=== PATIENT | male | born 1950 | race Caucasian/White ===

== ENCOUNTER → 2016-12-28 | Outpatient (CLI) | payer OTHER ==
[2016-12-28 09:46] LABS: Urine Bilirubin Negative (Negative); Urine Blood Negative /uL (Negative); Urine Color Yellow (Yellow); Urine Glucose Normal (Normal); Urine Ketone Negative (Negative); Urine Mucus FEW (None Seen); Urine Nitrite Negative (Negative); Urine RBC <1 /hpf (0 - 3); Urine Urobilinogen Normal (Negative)
[2016-12-28 09:53] LABS: Basophils # (auto) 0 uL; Basophils % (auto) 0.6 % (0.0-2.0); CONDITION Y; Eosinophils # (auto) 0.1 uL; Eosinophils % (auto) 1.3 % (0.0-7.0); Hematocrit 47.7 % (41.0-53.0); Hemoglobin 16.3 g/dL (13.5-17.5); Lymphocytes # (auto) 1.7 uL; Lymphocytes % (auto) 23.8 % (10.0-50.0); Mean Corpuscular Hemoglobin 30.4 pg (28.0-32.0); Mean Corpuscular Hgb Conc. 34.2 g/dL (32.0-36.0); Mean Corpuscular Volume 88.9 fL (80.0-100.0); Mean Platelet Volume 9.9 fL (7.4-10.4); Monocytes # (auto) 0.6 uL; Monocytes % (auto) 7.8 % (0.0-12.0); Neutrophils # (auto) 4.8 uL; Neutrophils % (auto) 66.5 % (37.0-80.0); Platelet Count (auto) 264 10^3/uL (140-450); Red Cell Distribution Width 15.2 % (11.6-16.0); White Blood Cell 7.2 10^3/uL (4.4-10.8)
[2016-12-28 10:13] LABS: Albumin 3.8 g/dL (3.4-5.0); BUN/Creatinine Ratio 19.1; Bilirubin, Total 0.5 mg/dL (0.2-1.0); Calcium 9.2 mg/dL (8.5-10.1); Potassium 3.9 mmol/L (3.5-5.1); Total Protein 7.3 g/dL (6.4-8.2)
== END | disposition home or self-care (01) ==
LOC: LAB 08:25
PROVIDERS: ATTEND Family Medicine
DX: E78.5 Hyperlipidemia, unspecified (principal); E29.1 Testicular hypofunction
CPT/HCPCS: 36415; 80053; 80061; 81001; 84403; 85025

== ENCOUNTER 2017-04-04 12:52 | Inpatient (IN) | payer OTHER ==
[~2017-04-04] VITALS: Ht 170.2 cm; Wt 93.9 kg
[2017-04-04 14:01] LABS: Basophils # (auto) 0.1 uL; Basophils % (auto) 0.6 % (0.0-2.0); Eosinophils # (auto) 0.2 uL; Eosinophils % (auto) 1.7 % (0.0-7.0); Hematocrit 41.5 % (41.0-53.0); Lymphocytes # (auto) 1.9 uL; Lymphocytes % (auto) 21.1 % (10.0-50.0); Mean Corpuscular Hgb Conc. 33.9 g/dL (32.0-36.0); Mean Corpuscular Volume 91.7 fL (80.0-100.0); Mean Platelet Volume 8.8 fL (6.9-10.8); Monocytes # (auto) 0.8 uL; Neutrophils # (auto) 6.1 uL; Neutrophils % (auto) 67.6 % (37.0-80.0); Platelet Count (auto) 231 10^3/uL (140-450); Red Cell Distribution Width 15.5 % (11.8-14.3)
[2017-04-04 14:17] LABS: Albumin 3.6 g/dL (3.4-5.0); Alkaline Phosphatase 77 U/L (45-117); Anion Gap 7 (5-15); Aspartate Aminotransferase 14 U/L (15-37); BUN/Creatinine Ratio 26.1; Bilirubin, Total 0.5 mg/dL (0.2-1.0); Blood Urea Nitrogen 18 mg/dL (7-18); Calcium 8.4 mg/dL (8.5-10.1); Carbon Dioxide 28 mmol/L (21-32); Chloride 102 mmol/L (98-107); GFR African American 147 mL/min; GFR Non-African American 122 mL/min; Glucose 88 mg/dL (74-106); Magnesium 2.1 mg/dL (1.6-2.6); Potassium 3.7 mmol/L (3.5-5.1); Sodium 137 mmol/L (136-145); Total Protein 7.1 g/dL (6.4-8.2)
[2017-04-04 22:00] VITALS: BP 117/76
[2017-04-04 23:30] VITALS: BP 117/76
[2017-04-05 05:00] VITALS: BP 147/77
[2017-04-05] MEDS ORDERED: NIFE60TA59 PO (05:55)
[2017-04-05] MEDS ORDERED: ASPI1TAB37 PO (05:55)
[2017-04-05] MEDS ORDERED: DOXA1TAB42 PO (06:01)
[2017-04-05] MEDS ORDERED: METO-169 PO (06:01)
[2017-04-05 06:57] LABS: Cholesterol 198 mg/dL (< 200); HDL Cholesterol 35 mg/dL (40-59); LDL Cholesterol 140 mg/dL (< 100); Triglycerides 118 mg/dL (< 150)
[2017-04-05] MEDS ORDERED: VALS160T43 PO (07:53)
[2017-04-05 08:50] LABS: Urine Bilirubin Negative (Negative); Urine Blood Negative /uL (Negative); Urine Color Yellow (Yellow); Urine Glucose Normal (Normal); Urine Ketone TRACE (Negative); Urine Mucus FEW (None Seen); Urine Nitrite Negative (Negative); Urine RBC <1 /hpf (0 - 3); Urine Squamous Epithelial Cell FEW /hpf (<5); Urine pH 6.5 (5.0-8.0)
[2017-04-05 09:14] VITALS: BP 157/84
[2017-04-05] MEDS ORDERED: LORazepam 2MG/ML-1ML VIAL IV ONE (13:15)
[2017-04-05 14:33] VITALS: BP 142/88
[2017-04-05] MEDS ORDERED: VALSARTAN 80 MG TAB PO ONE (16:00)
[2017-04-05] MEDS ORDERED: ASPirin-EC 81 mg tab PO ONE (16:00)
[2017-04-05] MEDS ORDERED: MECLIZINE HCL 25 MG TAB PO PRN (16:00)
[2017-04-05] MEDS ORDERED: METO-498 PO (16:08)
[2017-04-05] MEDS ORDERED: ALLO100T PO (16:11)
[2017-04-05] MEDS ORDERED: OMEG1CAP31 PO (16:14)
[2017-04-05] MEDS ORDERED: INDO50CA82 PO (16:17)
[2017-04-05] MEDS ORDERED: LORazepam 2MG/ML-1ML VIAL IV PRN ×2 (17:00→20:15)
[2017-04-05 17:34] VITALS: BP_SYST 141; BP_SYST 179; BP_DIAS 83; BP_DIAS 89
[2017-04-05 17:45] VITALS: BP 148/82
[2017-04-05 22:00] VITALS: BP_SYST 108; BP_SYST 146; BP_DIAS 65; BP_DIAS 84
[2017-04-05] MEDS ORDERED: ATORVASTATIN 20 MG TAB PO SCH (22:00)
[2017-04-06 05:51] VITALS: BP 147/83
[2017-04-06 07:08] LABS: BUN/Creatinine Ratio 19.7; Calcium 8.9 mg/dL (8.5-10.1); Potassium 4.4 mmol/L (3.5-5.1)
[2017-04-06 09:10] VITALS: BP 149/81
[2017-04-06] MEDS ORDERED: VALSARTAN 80 MG TAB PO SCH (10:00)
[2017-04-06] MEDS ORDERED: ASPirin-EC 81 mg tab PO SCH (10:00)
[2017-04-06] MEDS ORDERED: FAMOTIDINE 20 MG TAB PO SCH (10:00)
[2017-04-06 13:00] VITALS: BP 151/71
[2017-04-06] MEDS ORDERED: MECL12.554 PO (13:51)
[2017-04-06] MEDS ORDERED: NIFEdipine ER 30 MG TAB PO ONE (14:00)
[2017-04-06 15:02] VITALS: BP 149/81
== END 2017-04-06 16:00 | disposition home or self-care (01) | DRG 125 ==
LOC: ER 13:02 → TELE 13:03 → TELE-WESTW 21:20
PROVIDERS: ADMIT Nurse Practitioner Acute Care; ATTEND Internal Medicine
DX: H53.8 Other visual disturbances (principal); E78.5 Hyperlipidemia, unspecified; I10 Essential (primary) hypertension; N40.0 Benign prostatic hyperplasia without lower urinary tract symptoms; F17.200 Nicotine dependence, unspecified, uncomplicated; R00.1 Bradycardia, unspecified; R55 Syncope and collapse; Z82.3 Family history of stroke; Z80.8 Family history of malignant neoplasm of other organs or systems; H81.90 Unspecified disorder of vestibular function, unspecified ear
CPT/HCPCS: 36415; 43239; 70450; 70551; 71020; 80048; 80053; 80061; 81001; 82962; 83735; 84484; 85025; 87086; 93005; 93306; 93886; 94761

== ENCOUNTER → 2017-04-23 | Outpatient (CLI) | payer OTHER ==
[~2017-04-23] MED LIST: ALLO100T PO; ASPI1TAB37 PO; DOXA1TAB42 PO; INDO50CA82 PO; MECL12.554 PO; METO-498 PO; NIFE60TA59 PO; OMEG1CAP31 PO; VALS160T43 PO
== END | disposition home or self-care (01) ==
LOC: LAB 13:51
PROVIDERS: ATTEND Family Medicine
DX: Z12.11 Encounter for screening for malignant neoplasm of colon (principal); I10 Essential (primary) hypertension
CPT/HCPCS: 82270

== ENCOUNTER → 2017-08-26 | Outpatient (CLI) | payer OTHER ==
[~2017-08-26] MED LIST changes: -METO-498 PO; +METO200T42 PO
[2017-08-26 09:39] LABS: Basophils # (auto) 0.1 uL; Basophils % (auto) 0.8 % (0.0-2.0); Eosinophils # (auto) 0.1 uL; Hematocrit 43.7 % (41.0-53.0); Hemoglobin 14.5 g/dL (13.5-17.5); Lymphocytes # (auto) 1.6 uL; Lymphocytes % (auto) 22.2 % (10.0-50.0); Mean Corpuscular Hemoglobin 30.3 pg (28.0-32.0); Mean Corpuscular Hgb Conc. 33.2 g/dL (32.0-36.0); Mean Corpuscular Volume 91.4 fL (80.0-100.0); Monocytes # (auto) 0.7 uL; Neutrophils # (auto) 4.8 uL; Platelet Count (auto) 243 10^3/uL (140-450); Red Blood Cells 4.78 10^6/uL (4.5-5.90); White Blood Cell 7.3 10^3/uL (4.4-10.8)
[2017-08-26 09:57] LABS: Urine Bacteria NONE SEEN /hpf (None Seen); Urine Blood Negative /uL (Negative); Urine Mucus FEW (None Seen); Urine Specific Gravity 1.026 (1.001-1.035); Urine WBC 1 /hpf (0 - 3)
[2017-08-26 10:39] LABS: Albumin 3.7 g/dL (3.4-5.0); BUN/Creatinine Ratio 23.4; Bilirubin, Total 0.5 mg/dL (0.2-1.0); Calcium 9.4 mg/dL (8.5-10.1); Potassium 3.8 mmol/L (3.5-5.1); Total Protein 7.5 g/dL (6.4-8.2)
[2017-08-26 19:45] LABS: Prostate Specific Antigen 1.78 ng/mL (0.0-4.0)
[2017-08-26 19:46] LABS: Folate (Folic Acid) 13.32 ng/mL (5.38-24)
== END | disposition home or self-care (01) ==
LOC: LAB 08:09
PROVIDERS: ATTEND Nurse Practitioner
DX: E78.5 Hyperlipidemia, unspecified (principal); R79.89 Other specified abnormal findings of blood chemistry
CPT/HCPCS: 36415; 80053; 80061; 81001; 82607; 82746; 83036; 84153; 84403; 84443; 85025

== ENCOUNTER → 2018-03-09 | Outpatient (CLI) | payer OTHER ==
[2018-03-09 10:15] LABS: Basophils # (auto) 0 uL; Basophils % (auto) 0.5 % (0.0-2.0); Eosinophils # (auto) 0.1 uL; Eosinophils % (auto) 1.8 % (0.0-7.0); Hematocrit 42.4 % (41.0-53.0); Hemoglobin 14.2 g/dL (13.5-17.5); Lymphocytes # (auto) 1.5 uL; Lymphocytes % (auto) 19.8 % (10.0-50.0); Mean Corpuscular Hemoglobin 30.7 pg (28.0-32.0); Mean Corpuscular Hgb Conc. 33.5 g/dL (32.0-36.0); Mean Corpuscular Volume 91.5 fL (80.0-100.0); Monocytes # (auto) 0.7 uL; Monocytes % (auto) 9.1 % (0.0-12.0); Neutrophils # (auto) 5.2 uL; Neutrophils % (auto) 68.8 % (37.0-80.0); Nucleated Red Blood Cells % 0.1 %; Platelet Count (auto) 224 10^3/uL (140-450); Red Blood Cells 4.64 10^6/uL (4.5-5.90); White Blood Cell 7.6 10^3/uL (4.4-10.8)
[2018-03-09 10:26] LABS: Urine Bacteria NONE SEEN /hpf (None Seen); Urine Blood Negative /uL (Negative); Urine Mucus FEW (None Seen); Urine WBC 1 /hpf (0 - 3)
[2018-03-09 11:30] LABS: Albumin 3.8 g/dL (3.4-5.0); BUN/Creatinine Ratio 19.4; Bilirubin, Total 0.5 mg/dL (0.2-1.0); Calcium 9.2 mg/dL (8.5-10.1); Total Protein 7.5 g/dL (6.4-8.2)
== END | disposition home or self-care (01) ==
LOC: LAB 09:00
PROVIDERS: ATTEND Nurse Practitioner
DX: E78.1 Pure hyperglyceridemia (principal); I10 Essential (primary) hypertension
CPT/HCPCS: 36415; 80053; 80061; 81001; 83036; 85025

== ENCOUNTER → 2018-07-18 | Outpatient (CLI) | payer OTHER ==
[2018-07-18 09:37] LABS: Basophils # (auto) 0 uL; Basophils % (auto) 0.5 % (0.0-2.0); Eosinophils # (auto) 0.2 uL; Hematocrit 45.2 % (41.0-53.0); Hemoglobin 15.1 g/dL (13.5-17.5); Lymphocytes # (auto) 1.8 uL; Lymphocytes % (auto) 22.3 % (10.0-50.0); Mean Corpuscular Hemoglobin 30.3 pg (28.0-32.0); Mean Corpuscular Hgb Conc. 33.5 g/dL (32.0-36.0); Mean Corpuscular Volume 90.7 fL (80.0-100.0); Monocytes # (auto) 0.8 uL; Monocytes % (auto) 9.6 % (0.0-12.0); Neutrophils # (auto) 5.4 uL; Neutrophils % (auto) 65.6 % (37.0-80.0); Platelet Count (auto) 253 10^3/uL (140-450); Red Blood Cells 4.99 10^6/uL (4.5-5.90); Red Cell Distribution Width 15.1 % (11.8-14.3); White Blood Cell 8.2 10^3/uL (4.4-10.8)
[2018-07-18 09:48] LABS: Urine Bacteria NONE SEEN /hpf (None Seen); Urine Blood Negative /uL (Negative); Urine Specific Gravity 1.018 (1.001-1.035); Urine WBC 1 /hpf (0 - 3)
[2018-07-18 10:59] LABS: Anion Gap 6 (5-15); Blood Urea Nitrogen 23 mg/dL (7-18); Carbon Dioxide 29 mmol/L (21-32); Chloride 105 mmol/L (98-107); Glucose 114 mg/dL (74-106); Potassium 3.9 mmol/L (3.5-5.1); Sodium 140 mmol/L (136-145)
[2018-07-18 11:04] LABS: Alanine Aminotransferase 35 U/L (16-61); Alkaline Phosphatase 89 U/L (45-117); Aspartate Aminotransferase 19 U/L (15-37); BUN/Creatinine Ratio 23.7; Bilirubin, Total 0.4 mg/dL (0.2-1.0); Cholesterol 242 mg/dL (< 200); GFR African American > 60 mL/min; GFR Non-African American > 60 mL/min; HDL Cholesterol 35 mg/dL (40-59); LDL Cholesterol 185 mg/dL (< 100); Total Protein 7.7 g/dL (6.4-8.2); Triglycerides 151 mg/dL (< 150)
== END | disposition home or self-care (01) ==
LOC: LAB 08:40
PROVIDERS: ATTEND Nurse Practitioner
DX: E78.5 Hyperlipidemia, unspecified (principal)
CPT/HCPCS: 36415; 80053; 80061; 81001; 84443; 85025

== ENCOUNTER → 2018-09-16 | Day surgery (SDC) | payer OTHER ==
[2018-09-13 10:41] LABS: Basophils # (auto) 0.1 uL; Basophils % (auto) 0.8 % (0.0-2.0); Eosinophils # (auto) 0.2 uL; Eosinophils % (auto) 2.6 % (0.0-7.0); Hematocrit 42.9 % (41.0-53.0); Hemoglobin 14.4 g/dL (13.5-17.5); Lymphocytes # (auto) 1.4 uL; Lymphocytes % (auto) 19.5 % (10.0-50.0); Mean Corpuscular Hgb Conc. 33.5 g/dL (32.0-36.0); Mean Corpuscular Volume 89.6 fL (80.0-100.0); Monocytes # (auto) 0.7 uL; Monocytes % (auto) 9.6 % (0.0-12.0); Neutrophils # (auto) 4.9 uL; Neutrophils % (auto) 67.5 % (37.0-80.0); Nucleated Red Blood Cells % 0.1 %; Platelet Count (auto) 251 10^3/uL (140-450); Red Blood Cells 4.79 10^6/uL (4.5-5.90); Red Cell Distribution Width 14.7 % (11.8-14.3); White Blood Cell 7.3 10^3/uL (4.4-10.8)
[2018-09-13 10:54] LABS: INR 1.02 (0.9-1.15); Prothrombin Time 10.9 sec (9.27-12.13)
[~2018-09-16] VITALS: Ht 175.3 cm; Wt 93.0 kg
[~2018-09-16] MED LIST changes: -ALLO100T PO; -INDO50CA82 PO; -MECL12.554 PO; +METO-159 PO; -METO200T42 PO; +MIDAZOLAM HCL 5 MG/ML-1ML VIAL ONE; -OMEG1CAP31 PO; +SODIUM CHLORIDE LOCK 10 ML ONE; +diphenhdrAMINE HCL 50 MG/1 ML VL ONE; +fentaNYL CITRATE 100 MCG/2 ML VL ONE
[2018-09-16 11:45] VITALS: BP 153/71
== END | disposition home or self-care (01) ==
LOC: GI 09:00
PROVIDERS: ATTEND Internal Medicine Gastroenterology
DX: Z12.11 Encounter for screening for malignant neoplasm of colon (principal); K57.30 Diverticulosis of large intestine without perforation or abscess without bleeding; K64.8 Other hemorrhoids; Z79.82 Long term (current) use of aspirin; Z79.899 Other long term (current) drug therapy; Z98.890 Other specified postprocedural states
CPT/HCPCS: 36415; 45378; 85025; 85610; 85730; J1200; J2250; J3010; J7030; 99152

== ENCOUNTER → 2018-09-19 | Outpatient (CLI) | payer OTHER ==
[~2018-09-19] MED LIST changes: -MIDAZOLAM HCL 5 MG/ML-1ML VIAL ONE; -SODIUM CHLORIDE LOCK 10 ML ONE; -diphenhdrAMINE HCL 50 MG/1 ML VL ONE; -fentaNYL CITRATE 100 MCG/2 ML VL ONE
[2018-09-19 09:38] LABS: Basophils # (auto) 0 uL; Basophils % (auto) 0.6 % (0.0-2.0); Eosinophils # (auto) 0.2 uL; Hematocrit 44.5 % (41.0-53.0); Hemoglobin 14.7 g/dL (13.5-17.5); Lymphocytes # (auto) 1.7 uL; Lymphocytes % (auto) 19.4 % (10.0-50.0); Mean Corpuscular Hemoglobin 29.7 pg (28.0-32.0); Mean Corpuscular Hgb Conc. 33.1 g/dL (32.0-36.0); Mean Corpuscular Volume 89.7 fL (80.0-100.0); Monocytes # (auto) 0.8 uL; Monocytes % (auto) 9.3 % (0.0-12.0); Neutrophils # (auto) 5.9 uL; Neutrophils % (auto) 68.7 % (37.0-80.0); Nucleated Red Blood Cells % 0.1 %; Platelet Count (auto) 273 10^3/uL (140-450); Red Blood Cells 4.97 10^6/uL (4.5-5.90); Red Cell Distribution Width 14.6 % (11.8-14.3); White Blood Cell 8.5 10^3/uL (4.4-10.8)
[2018-09-19 09:45] LABS: Urine Bacteria NONE SEEN /hpf (None Seen); Urine Blood Negative /uL (Negative); Urine Specific Gravity 1.021 (1.001-1.035); Urine WBC 1 /hpf (0 - 3)
[2018-09-19 10:24] LABS: Potassium 4.2 mmol/L (3.5-5.1)
[2018-09-19 10:35] LABS: Albumin 3.9 g/dL (3.4-5.0); BUN/Creatinine Ratio 19.1; Bilirubin, Total 0.4 mg/dL (0.2-1.0); Calcium 9.1 mg/dL (8.5-10.1); Total Protein 7.5 g/dL (6.4-8.2)
== END | disposition home or self-care (01) ==
LOC: LAB 09:15
PROVIDERS: ATTEND Nurse Practitioner
DX: E78.5 Hyperlipidemia, unspecified (principal)
CPT/HCPCS: 36415; 80053; 80061; 81001; 85025

== ENCOUNTER → 2018-12-13 | Outpatient (CLI) | payer OTHER | END | disposition home or self-care (01) | LOC: LAB 09:28 | PROVIDERS: ATTEND Nurse Practitioner | DX: E78.5 Hyperlipidemia, unspecified (principal) | CPT/HCPCS: 36415; 83036 ==

== ENCOUNTER → 2019-03-24 | Outpatient (CLI) | payer OTHER ==
[2019-03-24 10:11] LABS: Basophils # (auto) 0.1 uL; Basophils % (auto) 1.3 % (0.0-2.0); Eosinophils # (auto) 0.1 uL; Hematocrit 43.8 % (41.0-53.0); Hemoglobin 15.2 g/dL (13.5-17.5); Lymphocytes # (auto) 1.6 uL; Lymphocytes % (auto) 14.9 % (10.0-50.0); Mean Corpuscular Hemoglobin 30.3 pg (28.0-32.0); Mean Corpuscular Hgb Conc. 34.8 g/dL (32.0-36.0); Mean Corpuscular Volume 87.1 fL (80.0-100.0); Monocytes # (auto) 0.8 uL; Neutrophils # (auto) 7.8 uL; Neutrophils % (auto) 74.8 % (37.0-80.0); Nucleated Red Blood Cells % 1.5 %; Platelet Count (auto) 276 10^3/uL (140-450); Red Blood Cells 5.03 10^6/uL (4.5-5.90); Red Cell Distribution Width 14.5 % (11.8-14.3); White Blood Cell 10.5 10^3/uL (4.4-10.8)
[2019-03-24 10:42] LABS: CRP High Sensitivity 0.76 mg/dL (< 0.3); Calcium 9.1 mg/dL (8.5-10.1); Potassium 3.7 mmol/L (3.5-5.1)
[2019-03-24 10:44] LABS: BUN/Creatinine Ratio 18.9; Bilirubin, Total 0.4 mg/dL (0.2-1.0); Total Protein 7.8 g/dL (6.4-8.2)
[2019-03-24 10:46] LABS: Urine Bacteria NONE SEEN /hpf (None Seen); Urine Blood Negative /uL (Negative); Urine Hyaline Cast FEW /lpf (0 - 2); Urine Mucus FEW (None Seen); Urine Specific Gravity 1.019 (1.001-1.035); Urine WBC 2 /hpf (0 - 3)
== END | disposition home or self-care (01) ==
LOC: LAB 09:53
PROVIDERS: ATTEND Nurse Practitioner
DX: J06.9 Acute upper respiratory infection, unspecified (principal)
CPT/HCPCS: 36415; 80053; 81001; 85025; 85652; 86141

== ENCOUNTER → 2019-04-12 | Outpatient (CLI) | payer OTHER ==
[2019-04-12 11:14] LABS: Calcium 9.2 mg/dL (8.5-10.1)
== END | disposition home or self-care (01) ==
LOC: LAB 08:59
PROVIDERS: ATTEND Nurse Practitioner
DX: Z01.818 Encounter for other preprocedural examination (principal); I10 Essential (primary) hypertension
CPT/HCPCS: 36415; 80048

== ENCOUNTER → 2019-08-11 | Outpatient (CLI) | payer OTHER ==
[~2019-08-11] MED LIST changes: +NIFE1TAB30 PO; -NIFE60TA59 PO
[2019-08-11 11:32] LABS: Basophils # (auto) 0.1 uL; Basophils % (auto) 0.7 % (0.0-2.0); Eosinophils # (auto) 0.2 uL; Eosinophils % (auto) 2.1 % (0.0-7.0); Hematocrit 44.1 % (41.0-53.0); Hemoglobin 14.5 g/dL (13.5-17.5); Lymphocytes % (auto) 20.4 % (10.0-50.0); Mean Corpuscular Hemoglobin 29.6 pg (28.0-32.0); Mean Corpuscular Volume 89.8 fL (80.0-100.0); Monocytes # (auto) 0.9 uL; Monocytes % (auto) 9.1 % (0.0-12.0); Neutrophils # (auto) 6.5 uL; Neutrophils % (auto) 67.7 % (37.0-80.0); Platelet Count (auto) 281 10^3/uL (140-450); Red Blood Cells 4.91 10^6/uL (4.5-5.90); Red Cell Distribution Width 14.8 % (11.8-14.3); White Blood Cell 9.7 10^3/uL (4.4-10.8)
[2019-08-11 12:54] LABS: Potassium 3.8 mmol/L (3.5-5.1)
[2019-08-11 13:09] LABS: Albumin 3.9 g/dL (3.4-5.0); BUN/Creatinine Ratio 16.5; Bilirubin, Total 0.4 mg/dL (0.2-1.0); Calcium 9.3 mg/dL (8.5-10.1); Total Protein 7.8 g/dL (6.4-8.2)
== END | disposition home or self-care (01) ==
LOC: LAB 11:17
PROVIDERS: ATTEND Nurse Practitioner
DX: Z00.00 Encounter for general adult medical examination without abnormal findings (principal)
CPT/HCPCS: 36415; 80053; 85025

== ENCOUNTER → 2020-03-25 | Outpatient (CLI) | payer OTHER | END | disposition home or self-care (01) | LOC: XY 15:55 | PROVIDERS: ATTEND Nurse Practitioner | DX: R42 Dizziness and giddiness (principal) | CPT/HCPCS: 93886 ==

== ENCOUNTER → 2020-06-17 | Outpatient (CLI) | payer OTHER ==
[2020-06-17 09:21] LABS: Albumin 3.7 g/dL (3.4-5.0); Calcium 9.1 mg/dL (8.5-10.1); Potassium 3.8 mmol/L (3.5-5.1)
[2020-06-17 09:24] LABS: BUN/Creatinine Ratio 19.1; Bilirubin, Total 0.4 mg/dL (0.2-1.0); Total Protein 7.6 g/dL (6.4-8.2)
== END | disposition home or self-care (01) ==
LOC: LAB 08:51
PROVIDERS: ATTEND Nurse Practitioner
DX: I10 Essential (primary) hypertension (principal)
CPT/HCPCS: 36415; 80053

== ENCOUNTER → 2020-08-22 | Outpatient (CLI) | payer OTHER ==
[~2020-08-22] VITALS: Ht 172.7 cm; Wt 93.0 kg
[~2020-08-22] MED LIST changes: +ADENOSINE 78 MG in GIVE UN-DILUTED 0 ML IV STA
== END | disposition home or self-care (01) ==
LOC: XY 08:12
PROVIDERS: ATTEND Internal Medicine
DX: R42 Dizziness and giddiness (principal)
CPT/HCPCS: 78452; 93017; A9500; J0153

== ENCOUNTER → 2020-08-23 | Outpatient (CLI) | payer OTHER ==
[~2020-08-23] MED LIST changes: -ADENOSINE 78 MG in GIVE UN-DILUTED 0 ML IV STA
== END | disposition home or self-care (01) ==
LOC: XYW 09:15
PROVIDERS: ATTEND Internal Medicine
DX: I10 Essential (primary) hypertension (principal)
CPT/HCPCS: 93306

== ENCOUNTER → 2020-10-14 | Outpatient (CLI) | payer OTHER ==
[2020-10-14 08:25] LABS: Basophils # (auto) 0.1 10 ^3/uL (0-0.2); Basophils % (auto) 0.9 % (0.0-2.0); Eosinophils # (auto) 0.2 10 ^3/uL (0-0.8); Eosinophils % (auto) 2.3 % (0.0-7.0); Hematocrit 46.5 % (41.0-53.0); Hemoglobin 15.8 g/dL (13.5-17.5); Lymphocytes # (auto) 2.5 10 ^3/uL (0.4-5.4); Lymphocytes % (auto) 24.7 % (10.0-50.0); Mean Corpuscular Hemoglobin 30.2 pg (28.0-32.0); Mean Corpuscular Hgb Conc. 33.9 g/dL (32.0-36.0); Monocytes # (auto) 0.9 10 ^3/uL (0-1.3); Monocytes % (auto) 8.6 % (0.0-12.0); Neutrophils # (auto) 6.5 10 ^3/uL (1.6-8.6); Neutrophils % (auto) 63.5 % (37.0-80.0); Nucleated Red Blood Cells % 0.2 %; Platelet Count (auto) 281 10^3/uL (140-450); Red Blood Cells 5.22 10^6/uL (4.5-5.90); Red Cell Distribution Width 14.4 % (11.8-14.3); Urine Bacteria NONE SEEN /hpf (None Seen); Urine Blood Negative /uL (Negative); Urine Specific Gravity 1.015 (1.001-1.035); Urine WBC 1 /hpf (0 - 3); White Blood Cell 10.3 10^3/uL (4.4-10.8)
[2020-10-14 09:19] LABS: Albumin 3.9 g/dL (3.4-5.0); Calcium 9.5 mg/dL (8.5-10.1); Potassium 4.5 mmol/L (3.5-5.1)
[2020-10-14 09:24] LABS: BUN/Creatinine Ratio 23.3; Bilirubin, Total 0.4 mg/dL (0.2-1.0); Total Protein 7.4 g/dL (6.4-8.2)
== END | disposition home or self-care (01) ==
LOC: LAB 08:07
PROVIDERS: ATTEND Nurse Practitioner
DX: I10 Essential (primary) hypertension (principal); E78.5 Hyperlipidemia, unspecified; R42 Dizziness and giddiness
CPT/HCPCS: 36415; 80053; 80061; 81001; 84443; 85025

== ENCOUNTER → 2020-11-19 | Outpatient (CLI) | payer OTHER ==
[~2020-11-19] MED LIST changes: +ALLO100T PO; +ASCO100076 PO; +ATOR10TA52 PO; +CHOL20007 PO; +FLAX1CAP PO; +FLUT50SP31; +INDO50CA82 PO; +METO25TA36 PO
[2020-11-19 11:32] LABS: Basophils # (auto) 0.1 10 ^3/uL (0-0.2); Basophils % (auto) 0.7 % (0.0-2.0); Eosinophils # (auto) 0.1 10 ^3/uL (0-0.8); Eosinophils % (auto) 1.1 % (0.0-7.0); Hematocrit 43.2 % (41.0-53.0); Hemoglobin 14.5 g/dL (13.5-17.5); Lymphocytes # (auto) 1.7 10 ^3/uL (0.4-5.4); Lymphocytes % (auto) 18.5 % (10.0-50.0); Mean Corpuscular Hemoglobin 30.3 pg (28.0-32.0); Mean Corpuscular Hgb Conc. 33.7 g/dL (32.0-36.0); Mean Corpuscular Volume 89.8 fL (80.0-100.0); Monocytes # (auto) 0.9 10 ^3/uL (0-1.3); Monocytes % (auto) 9.4 % (0.0-12.0); Neutrophils # (auto) 6.6 10 ^3/uL (1.6-8.6); Neutrophils % (auto) 70.3 % (37.0-80.0); Nucleated Red Blood Cells % 0.3 %; Platelet Count (auto) 275 10^3/uL (140-450); Red Blood Cells 4.81 10^6/uL (4.5-5.90); Red Cell Distribution Width 14.7 % (11.8-14.3); White Blood Cell 9.4 10^3/uL (4.4-10.8)
[2020-11-19 11:48] LABS: INR 1.04 (0.9-1.15); Partial Thromboplastin Time 27.9 sec (23.0-31.2)
[2020-11-19 12:42] LABS: Potassium 3.4 mmol/L (3.5-5.1)
[2020-11-19 12:48] LABS: Albumin 3.9 g/dL (3.4-5.0); BUN/Creatinine Ratio 21.3; Bilirubin, Total 0.4 mg/dL (0.2-1.0); Calcium 8.9 mg/dL (8.5-10.1); Total Protein 7.9 g/dL (6.4-8.2)
== END | disposition home or self-care (01) ==
LOC: LAB 11:12
PROVIDERS: ATTEND Internal Medicine
DX: Z01.812 Encounter for preprocedural laboratory examination (principal)
CPT/HCPCS: 36415; 80053; 85025; 85610; 85730

== ENCOUNTER 2020-11-22 07:29 | Day surgery (SDC) | payer OTHER ==
[~2020-11-22] VITALS: Ht 175.3 cm; Wt 90.7 kg
[~2020-11-22 07:29] MED LIST changes: -DOXA1TAB42 PO; -METO-159 PO
[2020-11-22] MEDS ORDERED: IODIXANOL 320MG/ML 100ML BTL IV ONE (09:50)
[2020-11-22] MEDS ORDERED: LIDOCAINE 2%HCL (LOCAL ANESTH.) INJ 20ML MDV ONE (09:50)
[2020-11-22] MEDS ORDERED: MIDAZOLAM HCL 1MG/1ML-2 ML VIAL ONE (10:01)
[2020-11-22] MEDS ORDERED: VERAPAMIL 2.5MG/ML INJ 2ML VIAL IV ONE (10:01)
[2020-11-22] MEDS ORDERED: fentaNYL CITRATE 100 MCG/2 ML VL ONE (10:01)
[2020-11-22] MEDS ORDERED: HEPARIN SODIUM (PORCINE) 5000 UNITS/ML 1ML VIAL ONE (10:01)
[2020-11-22] MEDS ORDERED: ANGIOMAX 250 MG VIAL IV ONE (10:01)
[2020-11-22] MEDS ORDERED: SODIUM CHL 0.9% 0 ML ONE (10:02)
[2020-11-22] MEDS ORDERED: ACETAMINOPHEN 500 MG TAB PO PRN (11:00)
[2020-11-22] MEDS ORDERED: ONDANSETRON HCL 4 MG/2 ML VIAL IV PRN (11:00)
== END 2020-11-22 13:22 | disposition home or self-care (01) ==
LOC: CATH 07:29
PROVIDERS: ATTEND Internal Medicine
DX: I25.10 Atherosclerotic heart disease of native coronary artery without angina pectoris (principal); I10 Essential (primary) hypertension; E78.5 Hyperlipidemia, unspecified; Z87.891 Personal history of nicotine dependence; Z79.82 Long term (current) use of aspirin; Z79.899 Other long term (current) drug therapy; Z68.29 Body mass index [BMI] 29.0-29.9, adult; Z20.822 Contact with and (suspected) exposure to COVID-19
CPT/HCPCS: 93458; 93571; C1769; C1887; C1894; J1644; J2250; J3010; J7030; Q9967; U0003; 99152; 99153

== ENCOUNTER 2021-03-23 10:54 | Emergency (ER) | payer OTHER ==
[~2021-03-23] VITALS: Ht 172.7 cm; Wt 90.7 kg
[2021-03-23] MEDS ORDERED: ASPirin 81 mg TAB PO ONE (11:15)
[2021-03-23 11:38] LABS: Basophils # (auto) 0.1 10 ^3/uL (0-0.2); Basophils % (auto) 0.7 % (0.0-2.0); Eosinophils # (auto) 0.2 10 ^3/uL (0-0.8); Eosinophils % (auto) 2.9 % (0.0-7.0); Hematocrit 45.8 % (41.0-53.0); Hemoglobin 15.5 g/dL (13.5-17.5); Lymphocytes # (auto) 1.7 10 ^3/uL (0.4-5.4); Mean Corpuscular Hemoglobin 30.7 pg (28.0-32.0); Mean Corpuscular Hgb Conc. 33.8 g/dL (32.0-36.0); Monocytes # (auto) 0.8 10 ^3/uL (0-1.3); Monocytes % (auto) 9.4 % (0.0-12.0); Neutrophils # (auto) 5.7 10 ^3/uL (1.6-8.6); Nucleated Red Blood Cells % 0.1 %; Red Blood Cells 5.04 10^6/uL (4.5-5.90); Red Cell Distribution Width 15.3 % (11.8-14.3); White Blood Cell 8.6 10^3/uL (4.4-10.8)
[2021-03-23 11:48] LABS: INR 1.07 (0.9-1.15); Partial Thromboplastin Time 26.6 sec (23.6-33.0)
[2021-03-23 11:53] LABS: Chloride 104 mmol/L (98-107); Potassium 3.8 mmol/L (3.5-5.1); Sodium 138 mmol/L (136-145)
[2021-03-23 11:59] LABS: Alanine Aminotransferase 34 U/L (16-61); Albumin 3.6 g/dL (3.4-5.0); Alkaline Phosphatase 91 U/L (45-117); Anion Gap 4 (5-15); Aspartate Aminotransferase 13 U/L (15-37); BUN/Creatinine Ratio 18.4; Bilirubin, Total 0.4 mg/dL (0.2-1.0); Blood Urea Nitrogen 16 mg/dL (7-18); Calcium 8.9 mg/dL (8.5-10.1); Carbon Dioxide 30 mmol/L (21-32); GFR African American 111 mL/min; GFR Non-African American 92 mL/min; Glucose 149 mg/dL (74-106); Total Protein 7.1 g/dL (6.4-8.2)
[2021-03-23 12:52] VITALS: BP 130/89
== END 2021-03-23 12:55 | disposition home or self-care (01) ==
LOC: ER 10:54
DX: R07.89 Other chest pain (principal); K29.70 Gastritis, unspecified, without bleeding; I10 Essential (primary) hypertension
CPT/HCPCS: 36415; 71045; 80053; 84443; 84484; 85025; 85610; 85730; 93005

== ENCOUNTER → 2021-05-09 | Day surgery (SDC) | payer OTHER ==
[2021-05-06 11:36] LABS: Basophils # (auto) 0.1 10 ^3/uL (0-0.2); Basophils % (auto) 0.6 % (0.0-2.0); Eosinophils # (auto) 0.1 10 ^3/uL (0-0.8); Hematocrit 42.2 % (41.0-53.0); Hemoglobin 14.2 g/dL (13.5-17.5); Lymphocytes % (auto) 20.9 % (10.0-50.0); Mean Corpuscular Hemoglobin 30.7 pg (28.0-32.0); Mean Corpuscular Hgb Conc. 33.6 g/dL (32.0-36.0); Mean Corpuscular Volume 91.3 fL (80.0-100.0); Monocytes % (auto) 10.7 % (0.0-12.0); Neutrophils # (auto) 6.5 10 ^3/uL (1.6-8.6); Neutrophils % (auto) 66.8 % (37.0-80.0); Nucleated Red Blood Cells % 0.2 %; Red Blood Cells 4.63 10^6/uL (4.5-5.90); White Blood Cell 9.8 10^3/uL (4.4-10.8)
[2021-05-06 11:58] LABS: INR 1.11 (0.9-1.15); Partial Thromboplastin Time 28.1 sec (23.6-33.0)
[2021-05-06 12:39] LABS: Potassium 4.3 mmol/L (3.5-5.1)
[2021-05-06 12:47] LABS: Albumin 3.6 g/dL (3.4-5.0); BUN/Creatinine Ratio 23.4; Bilirubin, Total 0.3 mg/dL (0.2-1.0); Total Protein 6.8 g/dL (6.4-8.2)
[~2021-05-09] VITALS: Ht 172.7 cm; Wt 90.7 kg
[~2021-05-09] MED LIST changes: +LIDOCAINE VISCOUS 2% 15ML UD ONE
[2021-05-09] MEDS: MIDAZOLAM HCL 5 MG/ML-1ML VIAL ONE ×3 (16:04→16:10)
[2021-05-09] MEDS: diphenhdrAMINE HCL 50 MG/1 ML VL ONE ×2 (16:04→16:07)
[2021-05-09] MEDS: fentaNYL CITRATE 100 MCG/2 ML VL ONE ×3 (16:04→16:10)
[2021-05-09 16:50] VITALS: BP 146/79
== END | disposition home or self-care (01) ==
LOC: GI 14:01
PROVIDERS: ATTEND Internal Medicine Gastroenterology
DX: K29.50 Unspecified chronic gastritis without bleeding (principal); K25.9 Gastric ulcer, unspecified as acute or chronic, without hemorrhage or perforation; K44.9 Diaphragmatic hernia without obstruction or gangrene; K31.89 Other diseases of stomach and duodenum; K29.80 Duodenitis without bleeding; I10 Essential (primary) hypertension; E78.5 Hyperlipidemia, unspecified; K21.9 Gastro-esophageal reflux disease without esophagitis; M10.9 Gout, unspecified; Z87.891 Personal history of nicotine dependence; Z82.49 Family history of ischemic heart disease and other diseases of the circulatory system; Z80.8 Family history of malignant neoplasm of other organs or systems; Z98.890 Other specified postprocedural states; Z79.899 Other long term (current) drug therapy; Z20.822 Contact with and (suspected) exposure to COVID-19
CPT/HCPCS: 36415; 43239; 45380; 80053; 85025; 85610; 85730; J1200; J2250; J3010; J7030; U0003; 99152

== ENCOUNTER → 2021-10-01 | Outpatient (CLI) | payer OTHER ==
[~2021-10-01] MED LIST changes: -LIDOCAINE VISCOUS 2% 15ML UD ONE
[2021-10-01 09:38] LABS: % Iron Saturation 33.8 % (20-55)
== END | disposition home or self-care (01) ==
LOC: LAB 08:58
PROVIDERS: ATTEND Psychiatry & Neurology Neurology
DX: G62.2 Polyneuropathy due to other toxic agents (principal); E61.1 Iron deficiency
CPT/HCPCS: 36415; 82728; 82951; 83540; 83550; 84155; 84165

== ENCOUNTER → 2021-12-16 | Outpatient (CLI) | payer OTHER ==
[2021-12-16 10:05] LABS: Basophils # (auto) 0.1 10 ^3/uL (0-0.2); Basophils % (auto) 0.7 % (0.0-2.0); Eosinophils # (auto) 0.1 10 ^3/uL (0-0.8); Eosinophils % (auto) 1.4 % (0.0-7.0); Lymphocytes # (auto) 1.7 10 ^3/uL (0.4-5.4); Lymphocytes % (auto) 19.1 % (10.0-50.0); Mean Corpuscular Hemoglobin 30.3 pg (28.0-32.0); Mean Corpuscular Hgb Conc. 34.1 g/dL (32.0-36.0); Mean Corpuscular Volume 88.9 fL (80.0-100.0); Monocytes # (auto) 0.7 10 ^3/uL (0-1.3); Monocytes % (auto) 7.5 % (0.0-12.0); Neutrophils # (auto) 6.5 10 ^3/uL (1.6-8.6); Neutrophils % (auto) 71.3 % (37.0-80.0); Nucleated Red Blood Cells % 0.1 %; Red Blood Cells 4.95 10^6/uL (4.5-5.90); Red Cell Distribution Width 15.2 % (11.8-14.3); White Blood Cell 9.1 10^3/uL (4.4-10.8)
[2021-12-16 10:08] LABS: Albumin 3.7 g/dL (3.4-5.0); Calcium 8.8 mg/dL (8.5-10.1); Potassium 3.9 mmol/L (3.5-5.1)
[2021-12-16 10:15] LABS: BUN/Creatinine Ratio 25.5; Bilirubin, Direct 0.2 mg/dL (0-0.2); Bilirubin, Total 0.5 mg/dL (0.2-1.0); Total Protein 7.5 g/dL (6.4-8.2); Uric Acid 5.6 mg/dL (3.5-7.2)
[2021-12-16 10:38] LABS: Urine Bacteria NONE SEEN /hpf (None Seen); Urine Blood Negative /uL (Negative); Urine Mucus FEW (None Seen); Urine Specific Gravity 1.026 (1.001-1.035); Urine WBC 1 /hpf (0 - 3)
[2021-12-16 10:50] LABS: Thyroid Stimulating Hormone 1.99 uIU/mL (0.358-3.74)
[2021-12-17 07:06] LABS: Immunoglobulin G, Serum 832 mg/dL (603-1613)
== END | disposition home or self-care (01) ==
LOC: LAB 09:15
PROVIDERS: ATTEND Internal Medicine
DX: E78.5 Hyperlipidemia, unspecified (principal); D64.9 Anemia, unspecified; R94.5 Abnormal results of liver function studies; G90.09 Other idiopathic peripheral autonomic neuropathy; E11.8 Type 2 diabetes mellitus with unspecified complications; E03.9 Hypothyroidism, unspecified; I10 Essential (primary) hypertension
CPT/HCPCS: 36415; 80053; 80076; 81001; 82232; 82784; 83036; 83615; 83883; 84155; 84165; 84443; 84550; 85025; 86334

== ENCOUNTER → 2022-02-11 | Outpatient (CLI) | payer OTHER ==
[2022-02-11 11:49] LABS: Basophils # (auto) 0 10 ^3/uL (0-0.2); Basophils % (auto) 0.4 % (0.0-2.0); Eosinophils # (auto) 0.1 10 ^3/uL (0-0.8); Eosinophils % (auto) 1.6 % (0.0-7.0); Hematocrit 43.5 % (41.0-53.0); Hemoglobin 14.4 g/dL (13.5-17.5); Lymphocytes # (auto) 1.9 10 ^3/uL (0.4-5.4); Lymphocytes % (auto) 21.9 % (10.0-50.0); Mean Corpuscular Hemoglobin 29.3 pg (28.0-32.0); Mean Corpuscular Volume 88.8 fL (80.0-100.0); Monocytes # (auto) 0.8 10 ^3/uL (0-1.3); Monocytes % (auto) 9.1 % (0.0-12.0); Neutrophils # (auto) 5.7 10 ^3/uL (1.6-8.6); Red Cell Distribution Width 14.7 % (11.8-14.3); White Blood Cell 8.5 10^3/uL (4.4-10.8)
[2022-02-11 13:21] LABS: Albumin 3.6 g/dL (3.4-5.0); Calcium 8.8 mg/dL (8.5-10.1); Potassium 3.8 mmol/L (3.5-5.1); Uric Acid 6.5 mg/dL (3.5-7.2)
[2022-02-11 13:24] LABS: BUN/Creatinine Ratio 20.2; Bilirubin, Total 0.6 mg/dL (0.2-1.0); Total Protein 7.4 g/dL (6.4-8.2)
[2022-02-12 15:15] LABS: Protein, Urine 15.7 mg/dL (0.0-11.9)
[2022-02-12 15:24] LABS: 24 Hr. Total Protein, Urine 282.6 mg/24 Hr (<149.1)
== END | disposition home or self-care (01) ==
LOC: LAB 11:15
PROVIDERS: ATTEND Internal Medicine
DX: G90.09 Other idiopathic peripheral autonomic neuropathy (principal)
CPT/HCPCS: 36415; 80053; 83615; 84156; 84166; 84550; 85025; 86335

== ENCOUNTER → 2022-04-15 | Outpatient (CLI) | payer OTHER ==
[2022-04-15 11:10] LABS: Albumin 3.5 g/dL (3.4-5.0); Potassium 4.2 mmol/L (3.5-5.1)
[2022-04-15 11:13] LABS: BUN/Creatinine Ratio 20.8
[2022-04-15 11:15] LABS: Bilirubin, Total 0.4 mg/dL (0.2-1.0); Total Protein 7.3 g/dL (6.4-8.2)
== END | disposition home or self-care (01) ==
LOC: LAB 10:05
PROVIDERS: ATTEND Nurse Practitioner
DX: R73.9 Hyperglycemia, unspecified (principal)
CPT/HCPCS: 36415; 80053; 83036

== ENCOUNTER → 2022-05-29 | Outpatient (CLI) | payer OTHER | END | disposition home or self-care (01) | LOC: LAB 11:27 | PROVIDERS: ATTEND Family Medicine | DX: D22.9 Melanocytic nevi, unspecified (principal) | CPT/HCPCS: 88302 ==

== ENCOUNTER → 2022-06-03 | Outpatient (CLI) | payer OTHER ==
[2022-06-03 09:56] LABS: Basophils # (auto) 0.1 10 ^3/uL (0-0.2); Eosinophils # (auto) 0.1 10 ^3/uL (0-0.8); Eosinophils % (auto) 1.3 % (0.0-7.0); Hematocrit 42.6 % (41.0-53.0); Hemoglobin 14.1 g/dL (13.5-17.5); Lymphocytes % (auto) 23.3 % (10.0-50.0); Mean Corpuscular Hemoglobin 29.4 pg (28.0-32.0); Mean Corpuscular Hgb Conc. 33.2 g/dL (32.0-36.0); Mean Corpuscular Volume 88.7 fL (80.0-100.0); Monocytes # (auto) 0.9 10 ^3/uL (0-1.3); Monocytes % (auto) 10.6 % (0.0-12.0); Neutrophils # (auto) 5.4 10 ^3/uL (1.6-8.6); Neutrophils % (auto) 63.8 % (37.0-80.0); Nucleated Red Blood Cells % 0.1 %; Red Cell Distribution Width 14.8 % (11.8-14.3); White Blood Cell 8.5 10^3/uL (4.4-10.8)
[2022-06-03 10:50] LABS: Magnesium 1.9 mg/dL (1.6-2.6); Potassium 4.2 mmol/L (3.5-5.1)
[2022-06-03 10:56] LABS: Albumin 3.6 g/dL (3.4-5.0); Bilirubin, Direct 0.1 mg/dL (0-0.2); Bilirubin, Total 0.4 mg/dL (0.2-1.0); Calcium 8.8 mg/dL (8.5-10.1); Total Protein 7.4 g/dL (6.4-8.2)
== END | disposition home or self-care (01) ==
LOC: LAB 09:38
PROVIDERS: ATTEND Specialist
DX: I10 Essential (primary) hypertension (principal); M83.9 Adult osteomalacia, unspecified; R94.5 Abnormal results of liver function studies; D64.9 Anemia, unspecified; E83.40 Disorders of magnesium metabolism, unspecified; E03.9 Hypothyroidism, unspecified; E11.8 Type 2 diabetes mellitus with unspecified complications; E78.5 Hyperlipidemia, unspecified
CPT/HCPCS: 36415; 80053; 80061; 80076; 82306; 83036; 83735; 84443; 85025

== ENCOUNTER → 2022-07-29 | Outpatient (CLI) | payer OTHER ==
[2022-07-29 10:13] LABS: Basophils # (auto) 0.1 10 ^3/uL (0-0.2); Basophils % (auto) 0.6 % (0.0-2.0); Eosinophils # (auto) 0.1 10 ^3/uL (0-0.8); Eosinophils % (auto) 1.3 % (0.0-7.0); Hematocrit 43.2 % (41.0-53.0); Hemoglobin 14.2 g/dL (13.5-17.5); Lymphocytes # (auto) 1.9 10 ^3/uL (0.4-5.4); Lymphocytes % (auto) 21.8 % (10.0-50.0); Mean Corpuscular Hemoglobin 29.4 pg (28.0-32.0); Mean Corpuscular Hgb Conc. 32.9 g/dL (32.0-36.0); Mean Corpuscular Volume 89.3 fL (80.0-100.0); Monocytes # (auto) 0.8 10 ^3/uL (0-1.3); Monocytes % (auto) 9.3 % (0.0-12.0); Neutrophils # (auto) 5.9 10 ^3/uL (1.6-8.6); Nucleated Red Blood Cells % 0.2 %; Red Blood Cells 4.83 10^6/uL (4.5-5.90); Red Cell Distribution Width 14.9 % (11.8-14.3); White Blood Cell 8.8 10^3/uL (4.4-10.8)
[2022-07-29 10:14] LABS: Urine Bacteria NONE SEEN /hpf (None Seen); Urine Blood Negative /uL (Negative); Urine Hyaline Cast FEW /lpf (0 - 2); Urine Mucus FEW (None Seen); Urine Specific Gravity 1.019 (1.001-1.035); Urine WBC 1 /hpf (0 - 3)
[2022-07-29 10:50] LABS: Albumin 3.9 g/dL (3.4-5.0); Calcium 9.4 mg/dL (8.5-10.1); Potassium 5.2 mmol/L (3.5-5.1)
[2022-07-29 10:54] LABS: BUN/Creatinine Ratio 20.2; Bilirubin, Total 0.4 mg/dL (0.2-1.0); Total Protein 7.2 g/dL (6.4-8.2)
== END | disposition home or self-care (01) ==
LOC: LAB 09:56
PROVIDERS: ATTEND Nurse Practitioner
DX: I10 Essential (primary) hypertension (principal); E78.5 Hyperlipidemia, unspecified
CPT/HCPCS: 36415; 80053; 80061; 81001; 84443; 85025

== ENCOUNTER → 2022-10-26 | Outpatient (CLI) | payer OTHER ==
[2022-10-26 09:39] LABS: Potassium 3.9 mmol/L (3.5-5.1)
[2022-10-26 09:46] LABS: Albumin 3.6 g/dL (3.4-5.0); BUN/Creatinine Ratio 21.2 (10.0-20.0); Bilirubin, Total 0.4 mg/dL (0.2-1.0); Calcium 8.8 mg/dL (8.5-10.1); Total Protein 7.4 g/dL (6.4-8.2)
== END | disposition home or self-care (01) ==
LOC: LAB 08:53
PROVIDERS: ATTEND Nurse Practitioner
DX: I10 Essential (primary) hypertension (principal); R91.8 Other nonspecific abnormal finding of lung field
CPT/HCPCS: 36415; 80053

== ENCOUNTER → 2022-11-25 | Outpatient (CLI) | payer OTHER ==
[~2022-11-25] MED LIST changes: +ASPI-628 PO; -ASPI1TAB37 PO; -VALS160T43 PO; +VALS160T6 PO
[2022-11-25 12:25] LABS: Basophils # (auto) 0.1 10 ^3/uL (0-0.2); Basophils % (auto) 0.5 % (0.0-2.0); Eosinophils # (auto) 0.2 10 ^3/uL (0-0.8); Eosinophils % (auto) 2.2 % (0.0-7.0); Hematocrit 40.7 % (41.0-53.0); Lymphocytes # (auto) 1.9 10 ^3/uL (0.4-5.4); Lymphocytes % (auto) 18.1 % (10.0-50.0); Mean Corpuscular Hemoglobin 30.2 pg (28.0-32.0); Mean Corpuscular Hgb Conc. 34.4 g/dL (32.0-36.0); Mean Corpuscular Volume 87.9 fL (80.0-100.0); Monocytes # (auto) 0.9 10 ^3/uL (0-1.3); Monocytes % (auto) 8.3 % (0.0-12.0); Neutrophils # (auto) 7.3 10 ^3/uL (1.6-8.6); Neutrophils % (auto) 70.9 % (37.0-80.0); Nucleated Red Blood Cells % 0.4 %; Red Blood Cells 4.64 10^6/uL (4.5-5.90); Red Cell Distribution Width 14.8 % (11.8-14.3); White Blood Cell 10.3 10^3/uL (4.4-10.8)
[2022-11-25 12:45] LABS: Albumin 3.7 g/dL (3.4-5.0); Calcium 8.9 mg/dL (8.5-10.1); Potassium 3.7 mmol/L (3.5-5.1); Uric Acid 5.6 mg/dL (3.5-7.2)
[2022-11-25 12:48] LABS: BUN/Creatinine Ratio 22.4 (10.0-20.0); Bilirubin, Total 0.4 mg/dL (0.2-1.0); Total Protein 7.2 g/dL (6.4-8.2)
[2022-11-26 08:06] LABS: Immunoglobulin G, Serum 872 mg/dL (603-1613)
== END | disposition home or self-care (01) ==
LOC: LAB 11:27
PROVIDERS: ATTEND Physician Assistant
DX: G90.09 Other idiopathic peripheral autonomic neuropathy (principal)
CPT/HCPCS: 36415; 80053; 82784; 83615; 83883; 84550; 85025

== ENCOUNTER → 2023-01-28 | Outpatient (CLI) | payer OTHER ==
[2023-01-28 11:07] LABS: Albumin 3.7 g/dL (3.4-5.0); Calcium 9.1 mg/dL (8.5-10.1); Potassium 4.4 mmol/L (3.5-5.1)
[2023-01-28 11:13] LABS: BUN/Creatinine Ratio 19.8 (10.0-20.0); Bilirubin, Total 0.4 mg/dL (0.2-1.0)
== END | disposition home or self-care (01) ==
LOC: LAB 09:49
PROVIDERS: ATTEND Nurse Practitioner
DX: R73.9 Hyperglycemia, unspecified (principal)
CPT/HCPCS: 36415; 80053; 83036; 84443

== ENCOUNTER → 2023-02-16 | Outpatient (CLI) | payer OTHER | END | disposition home or self-care (01) | LOC: XYW 10:18 | PROVIDERS: ATTEND Student in an Organized Health Care Education/Training Program | DX: I08.0 Rheumatic disorders of both mitral and aortic valves (principal); I48.0 Paroxysmal atrial fibrillation | CPT/HCPCS: 93306 ==

== ENCOUNTER → 2023-05-17 | Outpatient (CLI) | payer OTHER ==
[2023-05-17 10:40] LABS: Basophils # (auto) 0 10 ^3/uL (0-0.2); Basophils % (auto) 0.5 % (0.0-2.0); Eosinophils # (auto) 0.2 10 ^3/uL (0-0.8); Eosinophils % (auto) 1.6 % (0.0-7.0); Hematocrit 42.4 % (41.0-53.0); Hemoglobin 14.4 g/dL (13.5-17.5); Lymphocytes # (auto) 1.8 10 ^3/uL (0.4-5.4); Lymphocytes % (auto) 18.8 % (10.0-50.0); Mean Corpuscular Hemoglobin 30.5 pg (28.0-32.0); Mean Corpuscular Hgb Conc. 33.9 g/dL (32.0-36.0); Mean Corpuscular Volume 89.9 fL (80.0-100.0); Monocytes # (auto) 0.8 10 ^3/uL (0-1.3); Monocytes % (auto) 8.4 % (0.0-12.0); Neutrophils # (auto) 6.8 10 ^3/uL (1.6-8.6); Neutrophils % (auto) 70.7 % (37.0-80.0); Nucleated Red Blood Cells % 0.1 %; Red Blood Cells 4.71 10^6/uL (4.5-5.90); Red Cell Distribution Width 14.7 % (11.8-14.3); White Blood Cell 9.6 10^3/uL (4.4-10.8)
[2023-05-17 11:37] LABS: Alanine Aminotransferase 27 U/L (7-40); Alkaline Phosphatase 136 U/L (46-116); Anion Gap 6 (5-15); BUN/Creatinine Ratio 12.9 (10.0-20.0); Blood Urea Nitrogen 12 mg/dL (9-23); Calcium 9.5 mg/dL (8.5-10.1); Carbon Dioxide 30 mmol/L (20-30); Chloride 102 mmol/L (98-107); Glucose 170 mg/dL (74-106); Potassium 4.2 mmol/L (3.5-5.1); Sodium 138 mmol/L (136-145)
[2023-05-17 11:38] LABS: Albumin 4.3 g/dL (3.2-4.8); Aspartate Aminotransferase 20 U/L (13-40)
[2023-05-17 11:39] LABS: Bilirubin, Total 0.5 mg/dL (0.2-1.0); Total Protein 6.8 g/dL (5.7-8.2)
[2023-05-17 12:28] LABS: Uric Acid 6.4 mg/dL (3.7-9.2)
[2023-05-18 07:06] LABS: Immunoglobulin A 295 mg/dL (61-437); Immunoglobulin G, Serum 868 mg/dL (603-1613); Immunoglobulin M 309 mg/dL (15-143)
[2023-05-18 13:06] LABS: Albumin 3.5 g/dL (2.9-4.4); Alpha-1-Globulin 0.2 g/dL (0.0-0.4); Alpha-2-Globulin 0.7 g/dL (0.4-1.0); Gamma Globulin 1.1 g/dL (0.4-1.8); Globulin Total 3.2 g/dL (2.2-3.9); Protein Total Serum 6.7 g/dL (6.0-8.5)
== END | disposition home or self-care (01) ==
LOC: LAB 10:13
PROVIDERS: ATTEND Internal Medicine
DX: G90.09 Other idiopathic peripheral autonomic neuropathy (principal)
CPT/HCPCS: 36415; 80053; 82784; 83615; 83883; 84155; 84165; 84550; 85025

== ENCOUNTER → 2023-07-29 | Outpatient (CLI) | payer OTHER ==
[2023-07-29 09:51] LABS: Basophils # (auto) 0.1 10 ^3/uL (0-0.2); Basophils % (auto) 0.8 % (0.0-2.0); Eosinophils # (auto) 0.1 10 ^3/uL (0-0.8); Eosinophils % (auto) 1.5 % (0.0-7.0); Hematocrit 43.4 % (41.0-53.0); Hemoglobin 14.5 g/dL (13.5-17.5); Lymphocytes # (auto) 1.9 10 ^3/uL (0.4-5.4); Lymphocytes % (auto) 22.7 % (10.0-50.0); Mean Corpuscular Hemoglobin 30.2 pg (28.0-32.0); Mean Corpuscular Hgb Conc. 33.3 g/dL (32.0-36.0); Mean Corpuscular Volume 90.6 fL (80.0-100.0); Monocytes # (auto) 0.8 10 ^3/uL (0-1.3); Monocytes % (auto) 9.5 % (0.0-12.0); Neutrophils # (auto) 5.5 10 ^3/uL (1.6-8.6); Neutrophils % (auto) 65.5 % (37.0-80.0); Nucleated Red Blood Cells % 0.1 %; Red Blood Cells 4.79 10^6/uL (4.5-5.90); Red Cell Distribution Width 14.4 % (11.8-14.3); White Blood Cell 8.4 10^3/uL (4.4-10.8)
[2023-07-29 09:55] LABS: Urine Bacteria NONE SEEN /hpf (None Seen); Urine Blood Negative /uL (Negative); Urine Clarity Clear (Clear); Urine Color Yellow (Yellow); Urine Mucus FEW (None Seen); Urine Protein, UAD TRACE (Negative); Urine Specific Gravity 1.018 (1.001-1.035); Urine Urobilinogen Normal (Negative); Urine WBC 1 /hpf (0 - 3)
[2023-07-29 10:25] LABS: Alanine Aminotransferase 27 U/L (7-40); Albumin 4.2 g/dL (3.2-4.8); Alkaline Phosphatase 96 U/L (46-116); Anion Gap 6 (5-15); Aspartate Aminotransferase 22 U/L (13-40); BUN/Creatinine Ratio 19.6 (10.0-20.0); Blood Urea Nitrogen 18 mg/dL (9-23); Calcium 9.7 mg/dL (8.5-10.1); Carbon Dioxide 30 mmol/L (20-30); Chloride 104 mmol/L (98-107); Cholesterol 158 mg/dL (< 200); Glucose 115 mg/dL (74-106); LDL Cholesterol 100 mg/dL (< 100); Potassium 4.7 mmol/L (3.5-5.1); Sodium 140 mmol/L (136-145); Triglycerides 103 mg/dL (< 150)
[2023-07-29 10:26] LABS: Bilirubin, Total 0.5 mg/dL (0.2-1.0); HDL Cholesterol 39 mg/dL (40-59); Total Protein 6.7 g/dL (5.7-8.2)
== END | disposition home or self-care (01) ==
LOC: LAB 09:23
PROVIDERS: ATTEND Nurse Practitioner
DX: I10 Essential (primary) hypertension (principal); R73.9 Hyperglycemia, unspecified; E78.5 Hyperlipidemia, unspecified
CPT/HCPCS: 36415; 80053; 80061; 81001; 83036; 84443; 85025

== ENCOUNTER → 2024-01-24 | Outpatient (CLI) | payer OTHER ==
[2024-01-24 09:40] LABS: Alanine Aminotransferase 20 U/L (7-40); Albumin 4.3 g/dL (3.2-4.8); Alkaline Phosphatase 100 U/L (46-116); Anion Gap 6 (5-15); Aspartate Aminotransferase 13 U/L (13-40); BUN/Creatinine Ratio 17.3 (10.0-20.0); Bilirubin, Total 0.4 mg/dL (0.2-1.0); Blood Urea Nitrogen 14 mg/dL (9-23); Calcium 9.9 mg/dL (8.7-10.4); Carbon Dioxide 30 mmol/L (20-30); Chloride 102 mmol/L (98-107); Glucose 115 mg/dL (74-106); Potassium 4.4 mmol/L (3.5-5.1); Sodium 138 mmol/L (136-145); Total Protein 6.9 g/dL (5.7-8.2)
== END | disposition home or self-care (01) ==
LOC: LAB 08:55
PROVIDERS: ATTEND Nurse Practitioner
DX: R73.9 Hyperglycemia, unspecified (principal)
CPT/HCPCS: 36415; 80053; 83036

== ENCOUNTER → 2024-05-22 | Outpatient (CLI) | payer OTHER ==
[2024-05-22 12:41] LABS: Basophils # (auto) 0.1 10 ^3/uL (0-0.2); Basophils % (auto) 0.6 % (0.0-2.0); Eosinophils # (auto) 0.2 10 ^3/uL (0-0.8); Hematocrit 41.3 % (41.0-53.0); Lymphocytes # (auto) 1.9 10 ^3/uL (0.4-5.4); Lymphocytes % (auto) 19.8 % (10.0-50.0); Mean Corpuscular Hemoglobin 30.1 pg (28.0-32.0); Mean Corpuscular Hgb Conc. 33.9 g/dL (32.0-36.0); Mean Corpuscular Volume 88.8 fL (80.0-100.0); Monocytes % (auto) 10.4 % (0.0-12.0); Neutrophils # (auto) 6.5 10 ^3/uL (1.6-8.6); Neutrophils % (auto) 67.2 % (37.0-80.0); Platelet Count (auto) 316 10^3/uL (140-450); Red Blood Cells 4.65 10^6/uL (4.5-5.90); Red Cell Distribution Width 15.2 % (11.8-14.3); White Blood Cell 9.6 10^3/uL (4.4-10.8)
[2024-05-22 13:38] LABS: Alanine Aminotransferase 23 U/L (7-40); Albumin 4.4 g/dL (3.2-4.8); Alkaline Phosphatase 87 U/L (46-116); Anion Gap 8 (5-15); Aspartate Aminotransferase 20 U/L (13-40); BUN/Creatinine Ratio 12.7 (10.0-20.0); Blood Urea Nitrogen 10 mg/dL (9-23); Calcium 10.3 mg/dL (8.7-10.4); Carbon Dioxide 30 mmol/L (20-31); Chloride 99 mmol/L (98-107); Glucose 95 mg/dL (74-106); Sodium 137 mmol/L (136-145)
[2024-05-22 13:39] LABS: Bilirubin, Total 0.5 mg/dL (0.2-1.0)
[2024-05-23 10:06] LABS: Immunoglobulin A 274 mg/dL (61-437); Immunoglobulin G, Serum 882 mg/dL (603-1613); Immunoglobulin M 298 mg/dL (15-143); Kappa Lite Chain Free Serum 27.6 mg/L (3.3-19.4)
== END | disposition home or self-care (01) ==
LOC: LAB 12:15
PROVIDERS: ATTEND Internal Medicine
DX: G90.09 Other idiopathic peripheral autonomic neuropathy (principal); D47.2 Monoclonal gammopathy
CPT/HCPCS: 36415; 80053; 82232; 82784; 83521; 84155; 84165; 85025

== ENCOUNTER 2024-11-29 09:33 | Outpatient (CLI) | payer OTHER ==
[2024-11-29 09:49] LABS: Urine Bacteria None Seen /hpf (None Seen)
[2024-11-29 10:17] LABS: Basophils # (auto) 0.1 10 ^3/uL (0-0.2); Basophils % (auto) 0.6 % (0.0-2.0); Eosinophils # (auto) 0.2 10 ^3/uL (0-0.8); Eosinophils % (auto) 1.7 % (0.0-7.0); Hematocrit 44.6 % (41.0-53.0); Hemoglobin 15.2 g/dL (13.5-17.5); Lymphocytes # (auto) 1.7 10 ^3/uL (0.4-5.4); Lymphocytes % (auto) 18.3 % (10.0-50.0); Mean Corpuscular Hemoglobin 30.1 pg (28.0-32.0); Mean Corpuscular Hgb Conc. 34.1 g/dL (32.0-36.0); Mean Corpuscular Volume 88.4 fL (80.0-100.0); Monocytes # (auto) 0.9 10 ^3/uL (0-1.3); Monocytes % (auto) 9.3 % (0.0-12.0); Neutrophils # (auto) 6.4 10 ^3/uL (1.6-8.6); Neutrophils % (auto) 70.1 % (37.0-80.0); Nucleated Red Blood Cells % 0.3 %; Platelet Count (auto) 279 10^3/uL (140-450); Red Blood Cells 5.05 10^6/uL (4.5-5.90); Red Cell Distribution Width 14.5 % (11.8-14.3); White Blood Cell 9.2 10^3/uL (4.4-10.8)
[2024-11-29 10:24] LABS: Alanine Aminotransferase 29 U/L (7-40); Albumin 4.7 g/dL (3.2-4.8); Alkaline Phosphatase 97 U/L (46-116); Anion Gap 8 (5-15); Aspartate Aminotransferase 24 U/L (13-40); BUN/Creatinine Ratio 16.3 (10.0-20.0); Blood Urea Nitrogen 14 mg/dL (9-23); Calcium 10.5 mg/dL (8.7-10.4); Carbon Dioxide 30 mmol/L (20-31); Chloride 103 mmol/L (98-107); Cholesterol 172 mg/dL (< 200); Glucose 121 mg/dL (74-106); HDL Cholesterol 42 mg/dL (40-59); LDL Cholesterol 116 mg/dL (< 100); Potassium 4.1 mmol/L (3.5-5.1); Sodium 141 mmol/L (136-145); Total Protein 7.4 g/dL (5.7-8.2); Triglycerides 100 mg/dL (< 150)
[2024-11-29 10:25] LABS: Bilirubin, Total 0.6 mg/dL (0.2-1.0)
[2024-11-29 11:21] LABS: Urine Blood Negative /uL (Negative); Urine Clarity Clear (Clear); Urine Color Yellow (Yellow); Urine Protein, UAD 1+ (Negative); Urine Specific Gravity 1.019 (1.001-1.035); Urine Squamous Epithelial Cell FEW /hpf (<5); Urine Urobilinogen Normal (Negative); Urine WBC 1 /HPF (0-3)
[2024-11-30 12:07] LABS: Immunoglobulin A 305 mg/dL (61-437); Immunoglobulin G, Serum 886 mg/dL (603-1613); Immunoglobulin M 364 mg/dL (15-143)
== END 2024-11-29 17:00 | disposition home or self-care (01) ==
LOC: LAB 09:33
PROVIDERS: ATTEND Nurse Practitioner
DX: I10 Essential (primary) hypertension (principal); D47.2 Monoclonal gammopathy; G90.09 Other idiopathic peripheral autonomic neuropathy; E78.5 Hyperlipidemia, unspecified; R73.9 Hyperglycemia, unspecified
CPT/HCPCS: 36415; 80053; 80061; 81001; 82232; 82784; 83036; 83521; 84153; 84155; 84165; 84443; 85025

== ENCOUNTER 2025-02-12 09:07 | Outpatient (CLI) | payer OTHER ==
[~2025-02-12] VITALS: Ht 172.7 cm; Wt 90.7 kg
[2025-02-12] MEDS: REGADENOSON 0.4 MG/5 ML SYRG IV ONE ×2 (11:18→11:31)
--- NOTE | 2025-02-12 13:05 | DVHSR ---
APPROVED REPORT Exam: Nuclear Stress Test BMI: 0 Stress Test Details HR Max Heart Rate (APMHR): 145.895017 bpm Target HR (85% APMHR): 123.457734 bpm BP ECG Stress ECG Conclusion anterolateral wall ischemia lvef 60% NM EXAM: Myocardial Perfusion REST/STRESS Imaging Protocol: Rest Tc-99m/Stress Tc-99m 2 days Resting Data Rest SPECT myocardial perfusion imaging was performed in supine position 45 minutes following the int ravenous injection of 11.0 mCi of Tc-99m Sestamibi. Time of rest injection: 09:54 Date: 02/12/2025 Time of rest imagin:39 Date: 02/12/2025 Administration Route: IV Administration Site: Right Arm Pharmacologic Stress Pharmacologic stress test was performed by injecting Regadenoson 0.4 mg IV push followed by the intra venous injection of 32.0 mCi of Tc-99m Sestamibi. Time of stress injection: 11:30 Date: 02/12/2025 Time of stress imagin:30 Date: 02/12/2025 Administration Route: IV Administration Site: Right Arm Gated Stress SPECT was performed 60 minutes after stress injection. The images were gated to evaluate regional wall motion and calculate left ventricular ejection fracti on. Stress only was performed in the Supine position. Nuclear Conclusion Nuclear Findings: positive for ischemia anterolateral wall ischemia lvef 60%
== END 2025-02-12 17:00 | disposition home or self-care (01) ==
LOC: XYW 09:07
PROVIDERS: ATTEND Internal Medicine
DX: I25.9 Chronic ischemic heart disease, unspecified (principal); I48.91 Unspecified atrial fibrillation
CPT/HCPCS: 78452; 93017; A9500; J2785

== ENCOUNTER 2025-02-28 11:40 | Day surgery (SDC) | payer OTHER ==
[2025-02-23 09:49] LABS: Hematocrit 43.9 % (41.0-53.0); Hemoglobin 14.8 g/dL (13.5-17.5); Mean Corpuscular Hemoglobin 29.6 pg (28.0-32.0); Mean Corpuscular Volume 87.6 fL (80.0-100.0); Nucleated Red Blood Cells % 0.1 %
[2025-02-23 10:04] LABS: Alanine Aminotransferase 28 U/L (7-40); Albumin 4.5 g/dL (3.2-4.8); Anion Gap 9 (5-15); BUN/Creatinine Ratio 10.3 (10.0-20.0); Blood Urea Nitrogen 10 mg/dL (9-23); Calcium 9.7 mg/dL (8.7-10.4); Carbon Dioxide 30 mmol/L (20-31); Chloride 98 mmol/L (98-107); Potassium 4.2 mmol/L (3.5-5.1); Sodium 137 mmol/L (136-145); Total Protein 7.9 g/dL (5.7-8.2)
[2025-02-23 10:05] LABS: Bilirubin, Total 0.7 mg/dL (0.2-1.0)
[2025-02-23 10:06] LABS: Alkaline Phosphatase 150 U/L (46-116); Glucose 122 mg/dL (74-106)
[2025-02-23 10:21] LABS: INR 1.14 (0.9-1.15); Partial Thromboplastin Time 27.9 SEC (24.5-34.5); Prothrombin Time 11.9 sec (9.3-11.8)
[~2025-02-28] VITALS: Ht 175.3 cm; Wt 92.1 kg
[2025-02-28] VITALS (7 sets, daily range): BP systolic 114–169; BP diastolic 56–80; PULSE 50–58; RESP 11–17; TEMP 98.4; O2SAT 94–100
[~2025-02-28 11:40] MED LIST changes: -ASCO100076 PO; -ASPI-628 PO; -CHOL20007 PO; -FLUT50SP31; -INDO50CA82 PO; +METO-158 PO; -METO25TA36 PO; -NIFE1TAB30 PO; -VALS160T6 PO; +VALS160T82 OR; +ZOLP5TAB PO
[2025-02-28] MEDS ORDERED: ANGIOMAX 250 MG VIAL IV ONE (15:19)
[2025-02-28] MEDS ORDERED: fentaNYL CITRATE 100 MCG/2 ML VL ONE (15:20)
[2025-02-28] MEDS ORDERED: SODIUM CHL 0.9% 0 ML ONE (15:20)
[2025-02-28] MEDS ORDERED: LIDOCAINE 2%HCL (LOCAL ANESTH.) INJ 20ML MDV ONE (15:20)
[2025-02-28] MEDS ORDERED: MIDAZOLAM HCL 2MG/2ML 2ml VIAL (1mg/ml) ONE (15:20)
[2025-02-28] MEDS ORDERED: IODIXANOL 320MG/ML 100ML BTL IV ONE (15:20)
[2025-02-28] MEDS ORDERED: HEPARIN SODIUM (PORCINE) 5000 UNITS/ML 1ML VIAL ONE (15:20)
[2025-02-28] MEDS ORDERED: VERAPAMIL 2.5MG/ML INJ 2ML VIAL IV ONE (15:21)
--- NOTE | 2025-02-28 16:57 | DVHOP2 ---
Operative Report - 2 Report Details Date: 02/28/25 Preop Diagnosis: CAD Postop Diagnosis: Mild CAD Surgeon: Tessie Coombs MD Anesthesiologist: Conscious sedation Anesthesia: Mac, Local Consent: The patient was informed of the risks and benefits of the procedure. These include but are not limited to complications of anesthesia, postoperative infection, incomplete relief of symptoms, recurrence of symptoms, damage to blood vessels, nerves and tendons, deep venous thrombosis, pulmonary embolism and possible need for repeat surgery in the future. Complications: No complications Findings: Mild CAD Indications for Surgery: Chest pain. Abnormal stress test Name of Procedure Performed Left heart catheterization. Bilateral cine coronary angiography left ventriculography. Procedure Details Procedure Details: Prior local anesthesia with 2% lidocaine to the right wrist and full informed consent obtained the patient was prepped and draped in usual fashion followed by placement of a six Swedish sheath into the right radial artery under fluoroscopic and ultrasound guidance. A Ramamia catheter was used to cannulate left main LV and RCA. Hemodynamics: Aortic blood pressure was 110/70. End-diastolic pressure was 12. There was no gradient across the aortic valve on pullback. Coronary anatomy: The RCA is a large vessel with a proximal 30-40% stenosis. No critical lesions noted. The mid and distal segments are normal. PDA and posterolateral branches are normal. Left main is large and normal. The LAD was large and normal. The diagonals and septals are normal. Circumflex is large with a mild plaquing in its proximal portion. First marginal branch has mild plaquing otherwise normal. Ventriculography in the SAMUEL projection shows an EF of 65% without wall motion abnormalities Impression: 1. Normal left ventricular end-diastolic pressure at rest. 2. Normal ejection fraction. 3. No significant coronary artery disease. Recommendations: Continue medical therapy. Conservative medical management. Risk factor modification to continue. Condition Good Disposition Home Date of Service: Feb 28, 2025 Billing Provider: TESSIE COOMBS Sr., MD Cardiology Common Codes: 82104-XWAOQCX INP/OBS CARE (High) Cardiology Procedure Codes: 79502-IXCS HEART CATH W/INTRA INJ TESSIE COOMBS Sr., MD Feb 28, 2025 16:56
== END 2025-02-28 19:00 | disposition home or self-care (01) ==
LOC: CATH 11:40
PROVIDERS: ATTEND Internal Medicine
DX: R07.9 Chest pain, unspecified (principal); R94.39 Abnormal result of other cardiovascular function study; I10 Essential (primary) hypertension; I25.110 Atherosclerotic heart disease of native coronary artery with unstable angina pectoris; E78.5 Hyperlipidemia, unspecified; Z79.899 Other long term (current) drug therapy; Z98.890 Other specified postprocedural states
CPT/HCPCS: 36415; 80053; 85025; 85610; 85730; 93458; C1769; C1887; C1894; J1644; J2250; J3010; J7030; Q9967; 99152

== ENCOUNTER 2025-06-04 16:42 | Inpatient (IN) | payer OTHER ==
[~2025-06-04] VITALS: Ht 165.1 cm; Wt 92.5 kg
[2025-06-04 18:33] VITALS: BP 146/80; PULSE 73; PULSE 76; RESP 18; TEMP 98.5; O2SAT 97
--- NOTE | 2025-06-04 19:10 | DVHHPRES ---
History of Present Illness Resident Creating Document: SHARYN TAYLOR RESIDENT History of Present Illness Patient is 74 years old male with past medical history of hypertension, hyperlipidemia, gout, diverticulosis, neuropathy, mild coronary artery disease is being admitted for spinal surgery for cervical spine severe stenosis. 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 There is mass effect on the cervical spinal cord at every disc level C3-T1, most severe at the C3-C4 and C4-C5 levels.Significant neural foraminal stenosis bilaterally at every disc level C3- C7. These findings May correspond to upper extremity radicular symptoms in the bilateral C4, C5, C6, and C7 nerve root distributions. Patient denied acute chest pain, shortness of breath, acute joint redness or swelling, diarrhea or fever cough. Patient reported he had colonoscopy and endoscopy done couple of years before and it was normal. Patient had left heart catheterization on 02/28/2025 which revealed- No significant coronary artery disease. Echo 2D on 02/15/2025 revealed LVEF 60%. 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, denies using substance, lives with the Home meds-nifedipine, allopurinol, metoprolol, valsartan hydrochlorothiazide, atorvastatin ROS Cardiovascular- deny acute chest pain or shortness of breath or cough or palpitation Respiratory denies cough or short of breath or wheezing Gastrointestinal- denies any rectal bleeding, nausea or vomiting Musculoskeletal-bilateral upper extremity weakness, difficulty in walking Neurological-bilateral upper extremity weakness and difficulty in walking Psychiatry- denies depression or SI or HI Skin- denies acute rash or purpura Review of Systems Allergies: Coded Allergies: NO KNOWN ALLERGIES (Unverified , 02/23/25) Exam Exam General examination- awake, alert, oriented HEENT- PEERLA, no acute nasal discharge Cardiovascular- S1-S2 audible, rate and rhythm regular, no murmur Respiratory- CTAB, no wheeze or rhonchi Gastrointestinal-nontender, bowel sound+. Nondistended Musculoskeletal-no acute joint swelling or tenderness or redness extremity- bilateral upper extremity and lower weakness Neurological- bilateral upper and lower extremity weakness Psychiatry- denies depression or SI or HI Skin- no acute rash or purpura Assessment/Plan Assessment/Plan Assessment and plan # severe cervical Spinal canal stenosis # neuropathy # radiculopathy # neuroforaminal stenosis # facet arthropathy # difficulty in walking -On 05/29/2025 MRI of cervical spine-severe spinal canal stenosis at C3-C4 and C4-C5; moderate to severe spinal canal stenosis C5-C6; moderate spinal canal stenosis C6-C7. - mass effect on the cervical spinal cord at every disc level C3-T1, most severe at the C3-C4 and C4- C5 levels. -Significant neural foraminal stenosis bilaterally at every disc level C3-C7. -patient is being admitted for cervical spine surgery by Dr. Adair, spinal surgeon -ordered preoperative labs CBC, CMP, magnesium, TSH, hemoglobin A1c, CXR, EKG, echo 2D, PT APTT, typing and cross matching # hypertension -resumed home medication # gout -avoid high purine containing diet # diverticulosis -avoid dehydration and constipation # mild CAD -continue current conservative management # right thyroid nodule -follow up outpatient with the endocrinology/PCP Goals of care, Code status full code ; discussed with >15 minutes PUD prophylaxis: Pantoprazole DVT prophylaxis: Lovenox Plan discussed with Dr. Lyons, nursing staff, Total time spent on patient evaluation, chart review, assessment and plan, discussion discussion >35 minutes Plan discussed with: Patient, Spouse, Other (RN) Visit Coding STANDARD RES Billing Provider: TRISTON LYONS MD Date of Service if different f: Jun 04, 2025 Secondary Visit Codes: 10542-ZYCUFKYT CARE PLAN 30 MINUTES SHARYN TAYLOR RESIDENT Jun 04, 2025 19:10
[2025-06-04 19:35] LABS: Hematocrit 42.1 % (41.0-53.0); Hemoglobin 14.1 g/dL (13.5-17.5); Mean Corpuscular Hemoglobin 29.1 pg (28.0-32.0); Mean Corpuscular Volume 86.9 fL (80.0-100.0); Nucleated Red Blood Cells % 0.1 %
[2025-06-04 19:46] LABS: INR 1.07 (0.9-1.15); Partial Thromboplastin Time 27.2 SEC (24.5-34.5); Prothrombin Time 11.3 sec (9.3-11.8)
[2025-06-04 19:48] LABS: Alanine Aminotransferase 23 U/L (7-40); Albumin 4.2 g/dL (3.2-4.8); Anion Gap 10 (5-15); BUN/Creatinine Ratio 22.5 (10.0-20.0); Bilirubin, Total 0.4 mg/dL (0.2-1.0); Blood Urea Nitrogen 16 mg/dL (9-23); Calcium 9.5 mg/dL (8.7-10.4); Chloride 99 mmol/L (98-107); Magnesium 1.7 mg/dL (1.6-2.6); Potassium 4.1 mmol/L (3.5-5.1); Sodium 141 mmol/L (136-145); Total Protein 6.6 g/dL (5.7-8.2)
[2025-06-04 20:00] VITALS: O2SAT 98
[2025-06-04 20:39] LABS: Alkaline Phosphatase 136 U/L (46-116); Carbon Dioxide 32 mmol/L (20-31); Glucose 114 mg/dL (74-106)
[2025-06-04 21:00] VITALS: BP 142/80; PULSE 67; RESP 18; TEMP 97.7; O2SAT 96
[2025-06-04] MEDS: METOPROLOL TARTRATE 50 MG TAB PO SCH (21:40)
[2025-06-04] MEDS: SODIUM CHLORIDE 0.9% 1,000 ML IV SCH (21:40)
[2025-06-04] MEDS: ALLOPURINOL 100 MG TAB PO SCH (21:41)
[2025-06-04] MEDS: ZOLPIDEM TARTRATE 5 MG TAB PO SCH (21:41)
[2025-06-04] MEDS: ATORVASTATIN 20 MG TAB PO SCH (21:41)
[2025-06-05] VITALS (17 sets, daily range): BP systolic 130–160; BP diastolic 45–88; PULSE 53–72; RESP 8–17; TEMP 97.3–98.7; O2SAT 89–99
--- NOTE | 2025-06-05 07:17 | DVHINCON2 ---
Consultation - Spinal Surgery Date Seen: Jun 05, 2025 Referring Physician Reason for Consultation balance trouble, multiple falls, severe neck pain going down both arms to the feet and hands History of Present Illness History of Present Illness This is a pleasant man admitted to the hospital with history of increasing falls, increasing neck pain with radicular pain going down both arms and legs to the hands and feel no current bowel or bladder incontinence MRI cervical spine has been done previously 2 years ago and recently last week: It shows critical severity central canal stenosis of the cervical spine with near obliteration of the central canal at C3/4, 4/5 and 5/6 with cord signal changes consistent with spinal cord injury. no prior spine surgery he is having trouble with fine motor skills such as handwriting being poor, dropping things, and inability to use utensils no current bowel or bladder incontinence no f/c/night sweats Allergies and medications Allergies: Coded Allergies: NO KNOWN ALLERGIES (Unverified , 02/23/25) Home Meds Reported Medications Valsartan-Hydrochlorothiazide (VALSARTAN/HYDROCHLOROTHIA) 1 Tab Tab, 1 TAB OR DAILY for EDEMA/HTN 320-25 MG, TAB 02/23/25 Zolpidem Tartrate (Ambien) 5 Mg Tab, 5 MG PO HS for INSOMNIA, TAB 02/23/25 Metoprolol Tartrate (Metoprolol Tartrate) 50 Mg Tab, 50 MG PO BID for HTN for 30 Days, MG 02/23/25 Flaxseed (Linseed) (Flaxseed 1000 mg) 1 Cap Cap, 1 CAP PO DAILY for SUPPLEMENT 11/19/20 Allopurinol (Allopurinol) 100 Mg Tab, 1 TAB PO BID for GOUT 11/19/20 Atorvastatin Calcium (ATORVASTATIN CALCIUM) 10 Mg Tab, 2 TAB PO QPM for HIGH CHOLESTEROL 11/19/20 Review of systems Review of Systems: HEENT:Normal, CVS:Normal, RESPIRATORY:Normal, GI:Normal, :Normal, MSK:Abnormal, NEURO:Abnormal Examination Vital signs Vital Signs Date Time Temp Pulse Resp B/P (MAP) Pulse Ox O2 Delivery O2 Flow Rate FiO2 06/05/25 05:00 98.2 62 17 130/76 (94) 96 98.2 06/04/25 20:00 Room Air* 0 21 Medications Current Medications Medications (Trade) Dose Ordered Sig/Galina Route PRN Reason Start Time Stop Time Status Last Admin Allopurinol (Zyloprim Tablet) 100 mg BID PO 06/04/25 22:00 06/04/25 21:41 Metoprolol Tartrate (Lopressor Tablet) 50 mg BID PO 06/04/25 22:00 06/04/25 21:40 Zolpidem Tartrate (Ambien) 5 mg HS PO 06/04/25 22:00 06/04/25 21:41 Atorvastatin Calcium (Lipitor) 20 mg HS PO 06/04/25 22:00 06/04/25 21:41 Patient Own Medication 1 tab DAILY OR 06/05/25 10:00 UNV Valsartan (Diovan) 320 mg DAILY PO 06/05/25 10:00 Hydrochlorothiazide (hydroCHLOROthiazide TABLET) 25 mg DAILY PO 06/05/25 10:00 Sodium Chloride 1,000 ml @ 75 mls/hr [id number] IV 06/04/25 20:30 06/04/25 21:40 Laboratory PATIENT: SAMI CAMPOS ACCT: [id number] UNIT: [id number] : 1950 LOC: MRI ROOM / BED: / AGE / SEX: 74 / M ADM STATUS: REG CLI SERVICE 1300 ORDERING PHYSICIAN: MARGARET BRUNO DNP PROCEDURE(s): MNE - CERVICAL WO CONTRAST REASON: PAIN ORDER NUMBER(s): [id number], ACCESSION NUMBER(s): [id number] PROCEDURE: MRI CERVICAL WO CONTRAST INDICATION: PAIN 74-year-old male with neck pain and stiffness. EXAM DATE: 05/29/2025 01:03 PM COMPARISON: CERVICAL WO CONTRAST on DOS: 05/20/21 TECHNIQUE: MRI cervical spine without intravenous contrast. FINDINGS: No fractures are identified about the cervical spine. The cervical spinal canal is congenitally narrow. No cerebellar tonsillar ectopia. No abnormal signal in t he cervical spinal cord. There is mild mucosal thickening in the bilateral maxillary sinuses. C2-C3: No significant discopathy. There is left facet hypertrophy. The AP dimension of the spinal canal measures 7.3 mm. No significant neural foraminal stenosis bilaterally. C3-C4: There is 2 mm retrolisthesis C3 on C4. There is disc desiccation with slight loss of disc height. There is a circumferential disc bulge with endplate hypertrophy, most prominent posteriorly, measuring 6 mm AP posteriorly in the midline. There is bilateral facet hypertrophy, greater on the left. The AP dimension of the spinal canal measures 2 mm. There is marked mass effect on the anterior and posterior margins of the cervical spinal cord at this level (image 8, series 5). There is moderate to severe right and moderate left neural foraminal stenosis. C4-C5: There is 1.5 mm retrolisthesis C4 on C5. There is disc desiccation with loss of disc height. There are mild Modic type 1 and 2 changes in the adjacent endplates. There is a circumferential disc bulge with endplate hypertrophy, most prominent in the left pre foraminal region measuring up to 6 mm AP. The AP dimension of the spinal canal is narrowed to 3.5 mm in the midline. There is marked mass effect on the anterior and posterior margins of the cervical spinal cord, greater on the left. There is bilateral facet hypertrophy. There is moderate right and severe left neural foraminal stenosis. C5-C6: There is disc desiccation with loss of disc height. Possible vacuum phenomenon in the disc. There are mild Modic type 2 changes in the adjacent endplates. There is a circumferential disc bulge with endplate hypertrophy, most prominent posteriorly in the midline measuring 5 mm AP. There is bilateral facet hypertrophy, slightly greater on the left. The AP dimension of the spinal canal measures 4.5 mm. There is mass effect on the anterior margin of the cervical spinal cord at this level. There is severe right and moderate to severe left neural foraminal stenosis. C6-C7: There is disc desiccation with mild loss of disc height. There is a circumferential disc bulge with endplate hypertrophy, most prominent posteriorly in the midline measuring 4.5 mm AP. The AP dimension of the spinal canal measures 5.6 mm in the midline. There is mass effect on the anterior margin of the cervical spinal cord. There is moderate to severe bilateral neural foraminal stenosis. C7-T1: There is a mild circumferential disc bulge with superimposed left pre foraminal disc herniation measuring 4.4 mm AP (image 9, series 5). This causes mild mass effect on the left anterior margin of the spinal cord at that level. The AP dimension of the spinal canal measures 9 mm in the midline. There is bilateral facet hypertrophy, greater on the left. There is mild left and no significant right neural foraminal stenosis. IMPRESSION: 1. No fracture of the cervical spine. 2. 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 There is mass effect on the cervical spinal cord at every disc level C3-T1, most severe at the C3-C4 and C4-C5 levels. 3. Significant neural foraminal stenosis bilaterally at every disc level C3-C7. These findings May correspond to upper extremity radicular symptoms in the bilateral C4, C5, C6, and C7 nerve root distributions. Critical findings Critical Result: Severe spinal canal stenosis C3-C4 and C4-C5. Findings discussed with Dr. Bruno at 05/29/2025 03:56 PM central time, and acknowledged receipt and understanding of the findings. ATED BY: SAMI TRIPATHI MD DICTATED DATE/TIME: 05/29/25 1403 Labs Test 06/04/25 19:21 Range/Units White Blood Count 8.9 4.4-10.8 10^3/uL Red Blood Count 4.85 4.5-5.90 10^6/uL Hemoglobin 14.1 13.5-17.5 g/dL Hematocrit 42.1 41.0-53.0 % Mean Corpuscular Volume 86.9 80.0-100.0 fL Mean Corpuscular Hemoglobin 29.1 28.0-32.0 pg Mean Corpuscular Hemoglobin Concent 33.5 32.0-36.0 g/dL Red Cell Distribution Width 16.0 H 11.8-14.3 % Platelet Count 317 140-450 10^3/uL Mean Platelet Volume 8.5 6.9-10.8 fL Neutrophils (%) (Auto) 63.0 37.0-80.0 % Lymphocytes (%) (Auto) 21.4 10.0-50.0 % Monocytes (%) (Auto) 11.4 0.0-12.0 % Eosinophils (%) (Auto) 3.1 0.0-7.0 % Basophils (%) (Auto) 1.1 0.0-2.0 % Neutrophils # (Auto) 5.6 1.6-8.6 10 ^3/uL Lymphocytes # (Auto) 1.9 0.4-5.4 10 ^3/uL Monocytes # (Auto) 1.0 0-1.3 10 ^3/uL Eosinophils # (Auto) 0.3 0-0.8 10 ^3/uL Basophils # (Auto) 0.1 0-0.2 10 ^3/uL Nucleated Red Blood Cells 0.1 % Prothrombin Time 11.3 9.3-11.8 sec Prothrombin Time INR 1.07 0.9-1.15 Activated Partial Thromboplast Time 27.2 24.5-34.5 SEC Sodium Level 141 136-145 mmol/L Potassium Level 4.1 3.5-5.1 mmol/L Chloride Level 99 98-107 mmol/L Carbon Dioxide Level 32 H 20-31 mmol/L Anion Gap 10 5-15 Blood Urea Nitrogen 16 9-23 mg/dL Creatinine 0.71 0.700-1.30 mg/dL Glomerular Filtration Rate Calc 96 >90 mL/min BUN/Creatinine Ratio 22.5 H 10.0-20.0 Serum Glucose 114 H 74-106 mg/dL Hemoglobin A1c 6.0 H <5.7 % A1C Calcium Level 9.5 8.7-10.4 mg/dL Magnesium Level 1.7 1.6-2.6 mg/dL Total Bilirubin 0.4 0.2-1.0 mg/dL Aspartate Amino Transferase (AST) 24 13-40 U/L Alanine Aminotransferase (ALT) 23 7-40 U/L Alkaline Phosphatase 136 H 46-116 U/L Total Protein 6.6 5.7-8.2 g/dL Albumin 4.2 3.2-4.8 g/dL Thyroid Stimulating Hormone (TSH) 2.01 0.55-4.78 uIU/mL Examination: GENERAL:Normal, HEENT:Normal, HEENT:Abnormal, NECK:Abnormal, LUNGS:Normal, CVS:Normal, ABDOMEN:Normal, MSK:Abnormal, SKIN:Normal, NEURO:Abnormal (4/5 strength bilateral shoulder abduction, elbow flexion/ extension, wrist extension and flexion with decreased 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 operator helper 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; positive hoffmans reflex bilaterally; Lower extremities: 4/5 strength bilateral hip flexion, knee extension and ankle DF and PF; 3+ knee jerk and achilles reflexes and 3+ biceps and brachioradialis reflexes bilaterally;), :Normal, Any Other System: Problem List/Assessment/Plan Problems: (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 The goal is not to heal the spinal cord damage that has occurred but mor importantly to prevent further damage. Urgent decompression and stabilization of the spine will prevent further injury and hopefully be early enough to allow the body to heal the prior injury. I have offered the gentleman a cervical 3 to 6 with possible cervical 6 to 7 anterior cervical discectomy and fusion with bone graft and instrumentation. Risks and Benefits discussed at length with patient and he is anxious to proceed with surgery Dr. Meredith, the admitting physician is in the process of getting cardiology clearance. Plan discussed with Plan discussed with: Patient SHRUTI COTE MD Jun 05, 2025 07:17
--- NOTE | 2025-06-05 08:01 | DVH ---
CHEST RADIOGRAPH INDICATION: PREOPERATIVE CARE TECHNIQUE: Frontal and lateral view of the chest was obtained COMPARISON: XY CHEST TWO VIEWS ROUTINE on DOS: 02/20/25, CHEST TWO VIEWS ROUTINE on DOS: 07/06/22, CHEST PORTABLE on DOS: 03/23/21, CHEST TWO VIEWS ROUTINE on DOS: 11/19/20, XY CHEST TWO VIEWS ROUTINE on DOS: 02/20/25 FINDINGS: Lines and Tubes: None Lungs: No focal consolidation. Pleura: No effusion. No pneumothorax. Cardiomediastinal contours: Cardiomegaly Bones: No acute osseous abnormality. IMPRESSION: Cardiomegaly with CHF
[2025-06-05 08:51] LABS: Hematocrit 39.3 % (41.0-53.0); Hemoglobin 13.1 g/dL (13.5-17.5); Mean Corpuscular Hemoglobin 28.9 pg (28.0-32.0); Mean Corpuscular Volume 86.7 fL (80.0-100.0); Nucleated Red Blood Cells % 0.1 %
[2025-06-05 09:03] LABS: INR 1.12 (0.9-1.15); Partial Thromboplastin Time 27.9 SEC (24.5-34.5); Prothrombin Time 11.7 sec (9.3-11.8)
[2025-06-05 09:09] LABS: Alanine Aminotransferase 21 U/L (7-40); Anion Gap 8 (5-15); BUN/Creatinine Ratio 16.9 (10.0-20.0); Blood Urea Nitrogen 13 mg/dL (9-23); Calcium 9.1 mg/dL (8.7-10.4); Carbon Dioxide 29 mmol/L (20-31); Chloride 104 mmol/L (98-107); Glucose 99 mg/dL (74-106); Potassium 3.9 mmol/L (3.5-5.1); Sodium 141 mmol/L (136-145); Total Protein 6.2 g/dL (5.7-8.2)
[2025-06-05 09:10] LABS: Albumin 3.7 g/dL (3.2-4.8); Bilirubin, Total 0.5 mg/dL (0.2-1.0)
[2025-06-05 09:23] LABS: Alkaline Phosphatase 117 U/L (46-116)
[2025-06-05] MEDS: MAGNESIUM SULFATE 1GM/100ML 100 ML IV ONE (09:49)
[2025-06-05] MEDS: hydroCHLOROthiazide 25 MG TAB PO SCH (09:51)
[2025-06-05] MEDS: VALSARTAN 80 MG TAB PO SCH (09:52)
--- NOTE | 2025-06-05 11:22 | DVHINCON2 ---
Date Seen: Jun 05, 2025 Referring Physician MD Clay Reason for Consultation Cardiac risk stratification History of Present Illness This is a pleasant 74-year-old man who presented to the emergency room with a chief complaint of severe and progressive neck/back pain now associated with bilateral upper extremity numbness and increased fall injuries. The patient has been evaluated by spine consulted specialist, Dr. Mendoza, with plans for interventional procedure and requesting cardiac risk stratification prior to surgical intervention. The patient denies any chest pain, palpitations, diaphoresis, SOB, dizziness, or syncopal events. Denies exertional angina or d yspnea on exertion. Functional capacity is limited secondary to musculoskeletal issues. Nevertheless prior to this the patient reports going up and down multiple flights of stairs physical activity without assistance. He has undergone a 12 lead electrocardiogram revealing a normal sinus rhythm. Significant medical history includes mild coronary artery disease without the need of catheter based intervention as seen in coronary coronary angiogram on 02/28/2025, severe cervical cannula stenosis, hypertension, dyslipidemia, diverticulosis, remote history of smoking, and obesity. Past Medical History Past medical history reviewed. No other significant than mentioned above. Past Surgical History Past surgical history reviewed. No other significant than mentioned above. Family History: Cerebrovascular accident (CVA) G8 MOTHER, Onset:60 years & older Malignant melanoma G8 FATHER, Onset:50's - 60 Family History Family history reviewed. Significant for mother with CVA. Social History Denies the use of illicit drugs, alcohol, or tobacco use. Allergies: Coded Allergies: NO KNOWN ALLERGIES (Unverified , 02/23/25) Home Meds Reported Medications Valsartan-Hydrochlorothiazide (VALSARTAN/HYDROCHLOROTHIA) 1 Tab Tab, 1 TAB OR DAILY for EDEMA/HTN 320-25 MG, TAB 02/23/25 Zolpidem Tartrate (Ambien) 5 Mg Tab, 5 MG PO HS for INSOMNIA, TAB 02/23/25 Metoprolol Tartrate (Metoprolol Tartrate) 50 Mg Tab, 50 MG PO BID for HTN for 30 Days, MG 02/23/25 Flaxseed (Linseed) (Flaxseed 1000 mg) 1 Cap Cap, 1 CAP PO DAILY for SUPPLEMENT 11/19/20 Allopurinol (Allopurinol) 100 Mg Tab, 1 TAB PO BID for GOUT 11/19/20 Atorvastatin Calcium (ATORVASTATIN CALCIUM) 10 Mg Tab, 2 TAB PO QPM for HIGH CHOLESTEROL 11/19/20 Home Meds Home medications reviewed. Current Medications Current Medications Medications (Trade) Dose Ordered Sig/Galina Route PRN Reason Start Time Stop Time Status Last Admin Allopurinol (Zyloprim Tablet) 100 mg BID PO 06/04/25 22:00 06/05/25 09:52 Metoprolol Tartrate (Lopressor Tablet) 50 mg BID PO 06/04/25 22:00 06/05/25 09:52 Zolpidem Tartrate (Ambien) 5 mg HS PO 06/04/25 22:00 06/04/25 21:41 Atorvastatin Calcium (Lipitor) 20 mg HS PO 06/04/25 22:00 06/04/25 21:41 Patient Own Medication 1 tab DAILY OR 06/05/25 10:00 UNV Valsartan (Diovan) 320 mg DAILY PO 06/05/25 10:00 06/05/25 09:52 Hydrochlorothiazide (hydroCHLOROthiazide TABLET) 25 mg DAILY PO 06/05/25 10:00 06/05/25 09:51 Sodium Chloride 1,000 ml @ 75 mls/hr [id number] IV 06/04/25 20:30 06/05/25 09:27 DC 06/04/25 21:40 Review of Systems Constitutional: No symptom reported Ears, Nose, & Throat: No symptom reported Eyes: No symptom reported Neurological: No symptoms reported Pulmonary/Respiratory: No symptom reported Cardiovascular: No symptom reported Gastrointestinal: No symptom reported Genitourinary: No symptom reported Musculoskeletal: Neck/back pain, BUE paresthesia Skin: No symptom reported Psychiatric: No symptom reported Endocrine: No symptom reported Hemotologic/Lymphatic: No symptom reported Vital Signs Vital Signs Date Time Temp Pulse Resp B/P (MAP) Pulse Ox O2 Delivery O2 Flow Rate FiO2 06/05/25 09:52 151/88 06/05/25 09:52 56 06/05/25 09:00 97.3 16 96 97.3 06/04/25 20:00 Room Air* 0 21 Physical Exam General Appearance: Cooperative. Well developed. Obese. In no acute distress Head Exam: Normal inspection Neck Exam: Normal inspection. Non-tender. Normal alignment Pulmonary/Respiratory: Chest non-tender. Clear bilateral breath sounds Cardiovascular/Chest: Regular rate and rhythm. S1, S2. NSR. No murmurs. No JVD. Peripheral Pulses: 2+ Radial (R). 2+ Radial (L). 2+ Pedal (R). 2+ Pedal (L) Abdominal Exam: Normal bowel sounds. Soft. Nontender. No hepatospenomegaly. No masses Ankle Exam: Negative ankle edema Lower extremities: Negative lower extremity edema Neuro/Mental Status: A&O x4. Coherent Thoughts/Psych: Normal thought pattern. Appropriate mood and affect. Good judgement and insight Appearance: In no acute distress Skin Exam: Normal inspection. Normal color. Warm. Dry Labs/Diagnostic Data Labs Test 06/05/25 08:28 06/04/25 19:21 Range/Units White Blood Count 7.3 4.4-10.8 10^3/uL Red Blood Count 4.54 4.5-5.90 10^6/uL Hemoglobin 13.1 L 13.5-17.5 g/dL Hematocrit 39.3 L 41.0-53.0 % Mean Corpuscular Volume 86.7 80.0-100.0 fL Mean Corpuscular Hemoglobin 28.9 28.0-32.0 pg Mean Corpuscular Hemoglobin Concent 33.4 32.0-36.0 g/dL Red Cell Distribution Width 15.8 H 11.8-14.3 % Platelet Count 282 140-450 10^3/uL Mean Platelet Volume 8.5 6.9-10.8 fL Neutrophils (%) (Auto) 63.0 37.0-80.0 % Lymphocytes (%) (Auto) 21.4 10.0-50.0 % Monocytes (%) (Auto) 11.3 0.0-12.0 % Eosinophils (%) (Auto) 3.1 0.0-7.0 % Basophils (%) (Auto) 1.2 0.0-2.0 % Neutrophils # (Auto) 4.6 1.6-8.6 10 ^3/uL Lymphocytes # (Auto) 1.6 0.4-5.4 10 ^3/uL Monocytes # (Auto) 0.8 0-1.3 10 ^3/uL Eosinophils # (Auto) 0.2 0-0.8 10 ^3/uL Basophils # (Auto) 0.1 0-0.2 10 ^3/uL Nucleated Red Blood Cells 0.1 % Prothrombin Time 11.7 9.3-11.8 sec Prothrombin Time INR 1.12 0.9-1.15 Activated Partial Thromboplast Time 27.9 24.5-34.5 SEC Sodium Level 141 136-145 mmol/L Potassium Level 3.9 3.5-5.1 mmol/L Chloride Level 104 98-107 mmol/L Carbon Dioxide Level 29 20-31 mmol/L Anion Gap 8 5-15 Blood Urea Nitrogen 13 9-23 mg/dL Creatinine 0.77 0.700-1.30 mg/dL Glomerular Filtration Rate Calc 93 >90 mL/min BUN/Creatinine Ratio 16.9 10.0-20.0 Serum Glucose 99 74-106 mg/dL Calcium Level 9.1 8.7-10.4 mg/dL Total Bilirubin 0.5 0.2-1.0 mg/dL Aspartate Amino Transferase (AST) 20 13-40 U/L Alanine Aminotransferase (ALT) 21 7-40 U/L Alkaline Phosphatase 117 H 46-116 U/L Total Protein 6.2 5.7-8.2 g/dL Albumin 3.7 3.2-4.8 g/dL Hemoglobin A1c 6.0 H <5.7 % A1C Magnesium Level 1.7 1.6-2.6 mg/dL Thyroid Stimulating Hormone (TSH) 2.01 0.55-4.78 uIU/mL Assessment Preprocedural cardiovascular examination Severe cervical cannula stenosis Hypertension Dyslipidemia Obesity Plan/Recommendation (Dr. Crespo) Recent echocardiogram reveals an EF of 60% with normal RV function. Revised cardiac risk index (Nathanael criteria): 1.1% risk of , PA or cardiac arrest. Patient has no underlying history of congestive heart failure with HFrEF, has mild coronary artery disease without need for catheter-based intervention, and has an optimal functional capacity which is now restricted by cervical constraints. Per Cardiology standpoint, the patient is at an acceptable-risk for moderate-risk surgery. There is no additional cardiac workup indicated prior to surgery. Thank you for allowing us to care for this patient. Please call with any questions or concerns. This medical document was created using an electronic medical record system with voice recognition software and computerized dictation system. Although this document has been carefully reviewed, there might still be some phonetic and typographical errors. Occasional wrong-word or ``sound-alike substitutions may have occurred due to the inherent limitations of voice recognition software. These areas are purely typographical due to imperfections of the software programs and do not reflect any compromise in the patient's medical care. Please read the chart carefully and recognize, using context, where these substitutions have occurred. Plan discussed with: Patient, Spouse, Other NYHA Physical activity limitations: NA Date of Service: Jun 05, 2025 Billing Provider: BLAYNE DUNN Cardiology Common Codes: 40879-[id number] INP/OBS CARE (High) BLAYNE DUNN Jun 05, 2025 11:22
[2025-06-05] MEDS: TRANEXAMIC ACID 20 ML ONE (12:41)
--- NOTE | 2025-06-05 13:08 | ECG ---
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
--- NOTE | 2025-06-05 13:19 | PRN ---
Misceleneous Note Note Note Surgical/procedural interval history and physical note Current H and P was reviewed. The patient was reexamined. Re-evaluation of the patient confirms the necessity for the scheduled procedure. No change has occurred in the patient's condition since the spine consult was complete no less than 30 days ago. Physicians verification of informed consent The patient was counseled regarding the procedure, its indications, risks, potential complications, and alternatives. The risks/benefits/alternatives of surgery were explained to the patient in detail including but not limited to , stroke, paralysis, myocardial infarction, bleeding, infection, complications of anesthesia (dry mouth, sore throat, dental damage, respiratory depression, blindness), postoperative infection, incomplete relief of symptoms, recurrence of symptoms, damage to blood vessels, nerves and tendons, pulmonary embolism and possible need for repeat surgery in the future. Pain, damage to surrounding soft tissue structures, need for reoperation or future surgery, persistent pain/disability/deformity, bone graft collapse or extrusion of interbody device, instrumentation failure, need for instrumentation removal, dural tear, temporary or permanent nerve root damage, deep vein thrombosis, pulmonary embolism, were described to the patient in detail and the patient wishes to proceed. No guarantee of surgical outcome/improvement was implied. All of the questions were answered thoroughly, patient was agreeable to proceed and consents were obtained. Physicians verification of informed consent for blood transfusion There is a reasonable possibility that blood transfusions will be necessary as a result of the patient's procedure. I have discussed the following with the patient/patient's legal sales representative. An explanation of benefits and risks of the transfusion of blood or blood products and possible alternatives. All questions have been answered to the patient's or they are legal representatives satisfaction. Informed consent -The patient has been informed of: -The nature of the proposed care, treatment, services, medications, interventions or procedures. -Potential benefits, risks or side effects, including potential problems related to the procedure. -The likelihood of achieving care treatment and Service goals -Possible alternatives to the procedure/proposed care, treatment and service. -The relative risks, benefits and side effects related to alternatives, including possible results of not receiving care, treatment and services. -When indicated, any limitations on the confidentiality of the informed leaning from or about the patient. -if appropriate, the risks, benefits and alternatives of the drugs to be used for sedation/analgesia including moderate sedation. -if appropriate, patient has been provided information on the risks, benefits and alternatives to the transfusion of blood and/or blood products. -if appropriate, the patient has been provided information regarding the [place] blood act. Call with questions Bernardo Chan [facility] Orthopaedic Spine Surgery nurse practitioner For Dr Dione Mendoza Patient was examined, chart reviewed, labs evaluated, and diagnostic studies and findings analyzed. Case was discussed with Dr. Brett Mendoza who formulated the plan of care. This medical document was created using an electronic medical record system with IActive dictation system. Although this document has been carefully reviewed, there might still be some phonetic and typographical errors. These areas are purely typographical due to imperfections of the software programs, and do not reflect any compromise in the patient's medical care. Plan Additional comments: Patient is here for elective spine surgery with Dr Brett Mendoza C3-6 with possible 3-7 anterior cervical diskectomy and fusion with instrumentation and bone graft. NENA CHAN NP Jun 05, 2025 13:19
[2025-06-05] MEDS ORDERED: HYDROmorphone HCL 2 MG/ML VL/or syr ONE (13:48)
[2025-06-05] MEDS ORDERED: fentaNYL CITRATE 100 MCG/2 ML VL ONE (13:49)
[2025-06-05] MEDS ORDERED: MIDAZOLAM HCL 2MG/2ML 2ml VIAL (1mg/ml) ONE (13:49)
[2025-06-05] MEDS ORDERED: fentaNYL CITRATE 5 ML ONE (13:50)
[2025-06-05] MEDS ORDERED: ETOMIDATE (2MG/ML) 20ML VIAL IV ONE (14:46)
--- NOTE | 2025-06-05 16:37 | DVHPNRES ---
Progress Note Date Seen: Jun 05, 2025 Resident Creating Document: SHARYN TAYLOR RESIDENT Medical Necessity Reason Pt with a Central, PICC or Fol: No Subjective Review of Systems Patient is 74 years old male with past medical history of hypertension, hyperlipidemia, gout, diverticulosis, neuropathy, mild coronary artery disease is being admitted for spinal surgery for cervical spine severe stenosis. 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 There is mass effect on the cervical spinal cord at every disc level C3-T1, most severe at the C3-C4 and C4-C5 levels.Significant neural foraminal stenosis bilaterally at every disc level C3- C7. These findings May correspond to upper extremity radicular symptoms in the bilateral C4, C5, C6, and C7 nerve root distributions. Patient denied acute chest pain, shortness of breath, acute joint redness or swelling, diarrhea or fever cough. Patient reported he had colonoscopy and endoscopy done couple of years before and it was normal. Patient had left heart catheterization on 02/28/2025 which revealed- No significant coronary artery disease. Echo 2D on 02/15/2025 revealed LVEF 60%. 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, denies using substance, lives with the Home meds-nifedipine, allopurinol, metoprolol, valsartan hydrochlorothiazide, atorvastatin Patient was seen today at bedside Labs and chart reviewed As per Cardiology patient is at moderate risk for surgical intervention Patient was seen by spinal surgery team Patient status post cervical discectomy at multiple level along with the allograft prosthetic device placement Discussed the plan of care with the at bedside, answered questions Objective vital signs Vital Sign Date Time Temp Pulse Resp B/P (MAP) Pulse Ox O2 Delivery O2 Flow Rate FiO2 06/05/25 12:21 61 156/90 06/05/25 09:00 97.3 16 96 97.3 06/04/25 20:00 Room Air* 0 21 Total Intake and Output 06/04/25 06/04/25 06/05/25 15:00 23:00 07:00 Intake Total 0 ml Output Total 200 ml Balance -200 ml medications Current Medications Medications Dose Ordered Sig/Galina Route Start Time Stop Time Status Last Admin Dose Admin Allopurinol 100 mg BID PO 06/04/25 22:00 06/05/25 09:52 100 MG Metoprolol Tartrate 50 mg BID PO 06/04/25 22:00 06/05/25 09:52 50 MG Zolpidem Tartrate 5 mg HS PO 06/04/25 22:00 06/04/25 21:41 5 MG Atorvastatin Calcium 20 mg HS PO 06/04/25 22:00 06/04/25 21:41 20 MG Patient Own Medication 1 tab DAILY OR 06/05/25 10:00 UNV Valsartan 320 mg DAILY PO 06/05/25 10:00 06/05/25 09:52 320 MG Hydrochlorothiazide 25 mg DAILY PO 06/05/25 10:00 06/05/25 09:51 25 MG Examination General examination- awake, alert, oriented HEENT- PEERLA, no acute nasal discharge Cardiovascular- S1-S2 audible, rate and rhythm regular, no murmur Respiratory- CTAB, no wheeze or rhonchi Gastrointestinal-nontender, bowel sound+. Nondistended Musculoskeletal-no acute joint swelling or tenderness or redness extremity- bilateral upper extremity and lower weakness Neurological- bilateral upper and lower extremity weakness Psychiatry- denies depression or SI or HI Skin- no acute rash or purpura laboratory and microbiology Laboratory Tests 06/05/25 08:28 Test 06/05/25 08:28 Range/Units Serum Glucose 99 74-106 mg/dL Problem List/Assessment/Plan Problem List/Assessment/Plan Assessment and plan #Severe cervical Spinal canal stenosis # neuropathy # radiculopathy # neuroforaminal stenosis # facet arthropathy # difficulty in walking -On 05/29/2025 MRI of cervical spine-severe spinal canal stenosis at C3-C4 and C4-C5; moderate to severe spinal canal stenosis C5-C6; moderate spinal canal stenosis C6-C7. - mass effect on the cervical spinal cord at every disc level C3-T1, most severe at the C3-C4 and C4- C5 levels. -Significant neural foraminal stenosis bilaterally at every disc level C3-C7. -patient is being admitted for cervical spine surgery by Dr. Adair, spinal surgeon -ordered preoperative labs CBC, CMP, magnesium, TSH, hemoglobin A1c, CXR, EKG, echo 2D, PT APTT, typing and cross matching -patient was seen by spinal surgeon Dr. Adair, recommendation reviewed and appreciate -Patient status post cervical discectomy at multiple level along with the allograft prosthetic device placement # hypertension -resumed home medication # gout -avoid high purine containing diet # diverticulosis -avoid dehydration and constipation # mild CAD -continue current conservative management # right thyroid nodule -follow up outpatient with the endocrinology/PCP Goals of care, Code status full code ; discussed with >15 minutes PUD prophylaxis: Pantoprazole DVT prophylaxis: SCD Plan discussed with Dr. Kim, nursing staff, Total time spent on patient evaluation, chart review, Plan discussed with: Spouse (RN), Other My Orders My Orders Orders - SHARYN TAYLOR RESIDENT Procedure Category Date Status Time Electrocardigram EKG 06/04/25 Logged 19:10 Allopurinol Tablet PHA 06/04/25 In Process (Zyloprim Tablet) 22:00 Metoprolol Tartrate PHA 06/04/25 In Process Tablet (Lopressor Ta 22:00 Zolpidem Tartrate PHA 06/04/25 In Process (Ambien) 22:00 Npo After Midnight TERRY 06/04/25 In Process 19:39 Npo (Nothing By DIET 06/05/25 Transmitted Mouth) Diet Breakfast Atorvastatin (Lipitor) PHA 06/04/25 In Process 22:00 Valsartan (Diovan) PHA 06/05/25 In Process 10:00 Hydrochlorothiazide PHA 06/05/25 In Process Tablet (Hydrochlorot 10:00 Chest Xray 1 View XY 06/05/25 Resulted 07:00 Urinalysis LAB 06/05/25 Logged 07:01 Visit Coding STANDARD RES Billing Provider: CAROLINA KIM MD Date of Service if different f: Jun 05, 2025 Common Visit Codes: [id number] INP/OBS CARE(HIGH) SHARYN TAYLOR RESIDENT Jun 05, 2025 16:37 NATALI KHAN RESIDENT Jun 06, 2025 08:58
--- NOTE | 2025-06-05 16:56 | DVHOP2 ---
Operative Report - 2 Report Details Date: 06/05/25 Preop Diagnosis: Severe C3/4 and C4/5 and C5/6 central canal cervical spinal stenosis with cord compromise and swelling resulting in myelopathy and radiculopathy Postop Diagnosis: same as pre op Surgeon: Brett Mendoza MD Supervisor Con[employer] Finishing: Amy Chna NP Anesthesiologist: penny Anesthesia: General Consent: The patient was informed of the risks and benefits of the procedure. These in clude but are not limited to complications of anesthesia, postoperative infection, incomplete relief of symptoms, recurrence of symptoms, damage to blood vessels, nerves and tendons, deep venous thrombosis, pulmonary embolism and possible need for repeat surgery in the future. Name of Procedure Performed see detailed note Procedure Details Procedure Details: Pre Op Diagnosis: 1. Cervical Degenerative Disk Disease and Severe Spinal Stenosis at C3/4 , C4/5 and C5/6 Causing incapacitating neck pain, radiculopathy and progressive neurologic deficit 2. Severe central canal compromise with cord compression at C3/4 and C4/5 and C5/6 causing edema in the spinal cord resulting in myelopathy and radiculopathy. Post Op Diagnosis: 1. Same as pre op Procedure: Cervical 3 to 4 anterior cervical discectomy with Cervical 3-4 foraminotomies and facetectomies to decompression the spinal canal and Cervical 4 nerve roots Cervical 4 to 5 anterior cervical discectomy with Cervical 4-5 foraminotomies and facetectomies to decompression the spinal canal and Cervical 5 nerve roots Cervical 5 to 6 anterior cervical discectomy with Cervical 5-6 foraminotomies and facetectomies to decompression the spinal canal and Cervical 6 nerve roots Cervical 3-6 anterior cervical Fusion Cervical 3-6 anterior cervical instrumentation with Xtant Irix-C Standalone Interbody Fusion Device Cervical 3-4 placement of allograft prosthetic device Cervical 4-5 placement of allograft prosthetic device Cervical 5-6 placement of allograft prosthetic device Surgeon: Brett Mendoza MD Anesthesia: General Assist: Amy Chan NP Fluids and EBL: see anesthesia note Procedure Note: The patient was seen in the Pre-anesthesia Care Unit and the site of the incision was initialed by me with a felt tipped marker. All questions by the patient were answered to the satisfaction of the patient and the chart was reviewed. The patient was taken to the operating room and placed supine on the [facility] Flat top table. General anesthesia was induced. Neuromonitoring leads were placed. A rolled towel was placed between the shoulder blades to hyperextend out the chest which will allow better exposure of the cervical spine. Halter traction to 10 pounds was placed. The arms were padded and adducted to the patients side making sure all pulses in the hands were present. Tape traction was undertaken on the shoulders to give us better radiographic exposure of the distal cervical spine. A gel-pad was placed under the occiput and 5 degrees of extension was placed on the neck without adverse effects to the patient. The anterior neck was prepped and draped. Pre-operative antibiotics were given 30 minutes prior to the start of the procedure. A c-arm fluoroscope was used to amy out the incision site. A longitudinal incision from the cricoid process cranially to the hyoid bone along the anterior border of the sternocleidomastoid was made. At this time, a time out was taken per usual protocol. Next an incision was made through the skin with a 15 blade scalpel through the subcutaneous tissue down to the platysma. Self-retainers were placed. The platysma was incised along the longitudinal border with a Metzenbaum scissors. Blunt dissection was made through the deep cervical and pre-tracheal fascia taking care to protect the carotid sheath laterally and the trachea and esophagus medially. The dissection was carried down to the pre-vertebral fascia. Any crossing vessels were ligated using a vascular clip or coagulated with a bovie. An esophageal retractor was next used to retract the t rachea/esophagus and a bent [address] through the anterior annulus of the cervical disk and a lateral C-arm fluoroscopic image was taken to confirm that we were at the correct level. Next, bovie electrocautery was used to expose the bones of cervical 3,4,5,6 and bipolar electrocautery was used to lift up the Longus colli and capitus muscles. Black-Belt Self Retainers were used to retract the longus colli and capitus muscles bilaterally as well as the trachea/esophagus to the right and the carotid sheath to the left. Self retaining retractors were placed proximally and distally and a needle was placed again in the anterior annulus of the disk and an image taken to confirm the correct level. At this point, the microscope was wheeled in and an 11 blade scalpel incised the anterior annulus of the cervical 3/4 and 4/5 and 5/6 disks. Next, straight and curved curettes removed the remainder of the disks all the way down to the posterior longitudinal ligament. Carefully, a Kerison number one rongeur incised the posterior longitudinal ligament at the lateral end of the above disks and using a micro, blunt tip nerve hook to separate the posterior longitudinal ligament from the dura, alternating 1 mm and 2 mm Kerison rongeurs removed the posterior longitudinal ligament. Next, Kerison 1mm and 2 mm rongeurs were alternated to get under the uncinate processes and undercut them to perform foraminotomies and facetectomies at the cervical 3/4 and 4/5 and 5/6 levels to decompress the central canal and cervical 4,5 and 6 nerve roots. Next the c-arm fluoroscope was wheeled into the field and a lateral image was obtained. Increasing size graft trials were used starting at a 5 mm thick size until the proper tension in the disk space and height protestant obtained. We then placed final free standing cages at C3/4 and 4/5 and 5/6. The size of the implants was: 7mm thick interbody prosthetic devices were placed at each level. Satisfactory placement was confirmed in the AP and lateral views using a C-arm f luoroscope. Copious irrigation of the wound with sterile saline and all bleeding was controlled before closure initiated. At this point, a [address] Bengali [address] Drain was place deep to the Platysma muscle and the Platysma was approximated with one interrupted 0-Vicryl suture. The subcutaneous tissue was closed with interrupted 2-0 vicryl sutures and the skin was closed with diony. Sterile dressings were placed and a cervical collar placed, the patient extubated, transferred to the stretcher and taken to the Recovery Room in unremarkable condition. Condition Stable Disposition Still a Patient BRETT MENDOZA MD Jun 05, 2025 16:56
[2025-06-05] MEDS ORDERED: NITROGLYCERIN 0.4 MG SL TAB SL PRN (17:00)
[2025-06-05] MEDS ORDERED: ACETAMINOPHEN 325 MG TAB PO PRN (17:00)
[2025-06-05] MEDS ORDERED: HYDROmorphone HCL 2 MG/ML VL/or syr IV PRN (17:00)
[2025-06-05] MEDS ORDERED: MORPHINE SULFATE INJ 2 MG/ml SYRG IV PRN (17:00)
[2025-06-05] MEDS ORDERED: hydrALAZINE HCL 20 MG/ML VL IV PRN (17:00)
[2025-06-05] MEDS ORDERED: FLUMAZENIL 0.1 MG/ML INJ 10ML MDV IV PRN (17:00)
[2025-06-05] MEDS ORDERED: NALOXONE HCL 0.4 MG/ML VIAL IV PRN (17:00)
[2025-06-05] MEDS ORDERED: ONDANSETRON HCL 4 MG/2 ML VIAL IV PRN ×2 (17:00)
[2025-06-05] MEDS ORDERED: fentaNYL CITRATE 100 MCG/2 ML VL IV PRN (17:00)
[2025-06-05] MEDS: D5W/SOD CHLO 0.9% 1,000 ML IV SCH (18:44)
[2025-06-05 19:56] LABS: Hematocrit 39.9 % (41.0-53.0); Hemoglobin 13.1 g/dL (13.5-17.5)
--- NOTE | 2025-06-05 20:52 | DVHINCON2 ---
Date Seen: Jun 05, 2025 Referring Physician MD Clay Reason for Consultation Cardiac risk stratification History of Present Illness This is a pleasant 74-year-old male with a past medical history of mild coronary artery disease without the need of catheter based intervention as seen in coron fred coronary angiogram on 02/28/2025, severe cervical cannula stenosis, hypertension, dyslipidemia, diverticulosis, remote history of smoking, and obesity who presented to the emergency room with a chief complaint of severe and progressive neck/back pain now associated with bilateral upper extremity numbness and increased fall injuries. The patient has been evaluated by spine consulted specialist, Dr. Mendoza, with plans for interventional procedure and requesting cardiac risk stratification prior to surgical intervention. The patient denies any chest pain, palpitations, diaphoresis, SOB, dizziness, or syncopal events. Denies exertional angina or dyspnea on exertion. Functional capacity is limited secondary to musculoskeletal issues. Nevertheless prior to this the patient reports going up and down multiple flights of stairs physical activity without assistance. He has undergone a 12 lead electrocardiogram revealing a normal sinus rhythm. Chest x-ray shows cardiomegaly with CHF. Patient was admitted to the hospital. I am asked to consult on this patient. Past Medical History Past medical history reviewed. No other significant than mentioned above. Past Surgical History Past surgical history reviewed. No other significant than mentioned above. Family History: Cerebrovascular accident (CVA) G8 MOTHER, Onset:60 years & older Malignant melanoma G8 FATHER, Onset:50's - 60 Allergies: Coded Allergies: NO KNOWN ALLERGIES (Unverified , 02/23/25) Home Meds Reported Medications Valsartan-Hydrochlorothiazide (VALSARTAN/HYDROCHLOROTHIA) 1 Tab Tab, 1 TAB OR DAILY for EDEMA/HTN 320-25 MG, TAB 02/23/25 Zolpidem Tartrate (Ambien) 5 Mg Tab, 5 MG PO HS for INSOMNIA, TAB 02/23/25 Metoprolol Tartrate (Metoprolol Tartrate) 50 Mg Tab, 50 MG PO BID for HTN for 30 Days, MG 02/23/25 Flaxseed (Linseed) (Flaxseed 1000 mg) 1 Cap Cap, 1 CAP PO DAILY for SUPPLEMENT 11/19/20 Allopurinol (Allopurinol) 100 Mg Tab, 1 TAB PO BID for GOUT 11/19/20 Atorvastatin Calcium (ATORVASTATIN CALCIUM) 10 Mg Tab, 2 TAB PO QPM for HIGH CHOLESTEROL 11/19/20 Current Medications Current Medications Medications (Trade) Dose Ordered Sig/Galina Route PRN Reason Start Time Stop Time Status Last Admin Allopurinol (Zyloprim Tablet) 100 mg BID PO 06/04/25 22:00 06/05/25 09:52 Metoprolol Tartrate (Lopressor Tablet) 50 mg BID PO 06/04/25 22:00 06/05/25 09:52 Zolpidem Tartrate (Ambien) 5 mg HS PO 06/04/25 22:00 06/04/25 21:41 Atorvastatin Calcium (Lipitor) 20 mg HS PO 06/04/25 22:00 06/04/25 21:41 Patient Own Medication 1 tab DAILY OR 06/05/25 10:00 UNV Valsartan (Diovan) 320 mg DAILY PO 06/05/25 10:00 06/05/25 09:52 Hydrochlorothiazide (hydroCHLOROthiazide TABLET) 25 mg DAILY PO 06/05/25 10:00 06/05/25 09:51 Sodium Chloride 1,000 ml @ 75 mls/hr [id number] IV 06/04/25 20:30 06/05/25 09:27 DC 06/04/25 21:40 Review of Systems Constitutional: No symptom reported Ears, Nose, & Throat: No symptom reported Eyes: No symptom reported Neurological: No symptoms reported Pulmonary/Respiratory: No symptom reported Cardiovascular: No symptom reported Gastrointestinal: No symptom reported Genitourinary: No symptom reported Musculoskeletal: Neck/back pain, BUE paresthesia Skin: No symptom reported Psychiatric: No symptom reported Endocrine: No symptom reported Hemotologic/Lymphatic: No symptom reported Vital Signs Vital Signs Date Time Temp Pulse Resp B/P (MAP) Pulse Ox O2 Delivery O2 Flow Rate FiO2 06/05/25 12:21 61 156/90 06/05/25 09:00 97.3 16 96 97.3 06/04/25 20:00 Room Air* 0 21 Physical Exam GENERAL: Alert and oriented x 3. No acute distress. Obese. EYES: PERRL, EOMI. Anicteric. HENT: Moist mucous membranes. LUNGS: Clear to auscultation bilaterally. CARDIOVASCULAR: Regular rate and rhythm. ABDOMEN: Soft, nontender and nondistended. EXTREMITIES: No edema. NEUROLOGIC: No focal neurological deficits. SKIN: Warm, dry. Labs/Diagnostic Data Labs Test 06/05/25 08:28 06/04/25 19:21 Range/Units White Blood Count 7.3 4.4-10.8 10^3/uL Red Blood Count 4.54 4.5-5.90 10^6/uL Hemoglobin 13.1 L 13.5-17.5 g/dL Hematocrit 39.3 L 41.0-53.0 % Mean Corpuscular Volume 86.7 80.0-100.0 fL Mean Corpuscular Hemoglobin 28.9 28.0-32.0 pg Mean Corpuscular Hemoglobin Concent 33.4 32.0-36.0 g/dL Red Cell Distribution Width 15.8 H 11.8-14.3 % Platelet Count 282 140-450 10^3/uL Mean Platelet Volume 8.5 6.9-10.8 fL Neutrophils (%) (Auto) 63.0 37.0-80.0 % Lymphocytes (%) (Auto) 21.4 10.0-50.0 % Monocytes (%) (Auto) 11.3 0.0-12.0 % Eosinophils (%) (Auto) 3.1 0.0-7.0 % Basophils (%) (Auto) 1.2 0.0-2.0 % Neutrophils # (Auto) 4.6 1.6-8.6 10 ^3/uL Lymphocytes # (Auto) 1.6 0.4-5.4 10 ^3/uL Monocytes # (Auto) 0.8 0-1.3 10 ^3/uL Eosinophils # (Auto) 0.2 0-0.8 10 ^3/uL Basophils # (Auto) 0.1 0-0.2 10 ^3/uL Nucleated Red Blood Cells 0.1 % Prothrombin Time 11.7 9.3-11.8 sec Prothrombin Time INR 1.12 0.9-1.15 Activated Partial Thromboplast Time 27.9 24.5-34.5 SEC Sodium Level 141 136-145 mmol/L Potassium Level 3.9 3.5-5.1 mmol/L Chloride Level 104 98-107 mmol/L Carbon Dioxide Level 29 20-31 mmol/L Anion Gap 8 5-15 Blood Urea Nitrogen 13 9-23 mg/dL Creatinine 0.77 0.700-1.30 mg/dL Glomerular Filtration Rate Calc 93 >90 mL/min BUN/Creatinine Ratio 16.9 10.0-20.0 Serum Glucose 99 74-106 mg/dL Calcium Level 9.1 8.7-10.4 mg/dL Total Bilirubin 0.5 0.2-1.0 mg/dL Aspartate Amino Transferase (AST) 20 13-40 U/L Alanine Aminotransferase (ALT) 21 7-40 U/L Alkaline Phosphatase 117 H 46-116 U/L Total Protein 6.2 5.7-8.2 g/dL Albumin 3.7 3.2-4.8 g/dL Hemoglobin A1c 6.0 H <5.7 % A1C Magnesium Level 1.7 1.6-2.6 mg/dL Thyroid Stimulating Hormone (TSH) 2.01 0.55-4.78 uIU/mL Assessment Preprocedural cardiovascular examination. Severe cervical cannula stenosis. Hypertension. Dyslipidemia. Obesity. Plan/Recommendation I agree with your ongoing assessment and care of plan. Patient has been seen by Michelle Granado NP on my behalf, her and I discussed the plan with the patient. Recent echocardiogram reveals an EF of 60% with normal RV function. Revised cardiac risk index (Nathanael criteria): 1.1% risk of , GA or cardiac arrest. Patient has no underlying history of congestive heart failure with HFrEF, has mild coronary artery disease without need for catheter-based intervention, and has an optimal functional capacity which is now restricted by cervical constraints. Per Cardiology standpoint, the patient is at an acceptable-risk for moderate- risk surgery. There is no additional cardiac workup indicated prior to surgery. Additional plan as per the hospital course. Plan discussed with: Patient NYHA Physical activity limitations: NA Date of Service: Jun 05, 2025 Billing Provider: DENIZ EAGLE MD Cardiology Common Codes: [id number] INP/OBS CARE (High) Cardiology Consultation Codes: [id number] CONSULT <45MIN DENIZ EAGLE MD Jun 05, 2025 14:37
[2025-06-05] MEDS: DOCUSATE SOD 100 MG CAP PO SCH (22:00)
--- NOTE | 2025-06-05 22:13 | DVH ---
XY CERVICAL SPINE 3V Indication: ANTERIOR CERVICAL DISCECTOMY AND FUSION Comparison: None FINDINGS: C-arm fluoroscopic guidance was used. This report is rendered for records purposes only. A radiologist was not present for this procedure. Multiple images were obtained for presumed cervical spinal fusion surgery. IMPRESSION: FLUOROSCOPY. PLEASE REFER TO THE DEDICATED PROCEDURAL/OPERATIVE REPORT FOR FINDINGS.
--- NOTE | 2025-06-05 22:13 | DVH ---
XY C ARM FLUOROSCOPY UP TO 60MIN Indication: ANTERIOR CERVICAL DISCECTOMY AND FUSION Comparison: None FINDINGS: C-arm fluoroscopic guidance was used. This report is rendered for records purposes only. A radiologist was not present for this procedure. Fluoroscopy Time/Exposure/Number of Images: 11.2 seconds IMPRESSION: FLUOROSCOPY. PLEASE REFER TO THE DEDICATED PROCEDURAL/OPERATIVE REPORT FOR FINDINGS.
[2025-06-05] MEDS: CYCLOBENZAPRINE HCL 10 MG TAB PO SCH (22:26)
[2025-06-05] MEDS: ceFAZolin 1GM/50ML 50 ML IV SCH (22:26)
[2025-06-05] MEDS: MORPHINE SULFATE INJ 2 MG/ml SYRG IV PRN (22:38)
[2025-06-06] VITALS (36 sets, daily range): BP systolic 78–158; BP diastolic 41–88; PULSE 55–118; RESP 9–19; TEMP 97.5–98.1; O2SAT 86–98
[2025-06-06] MEDS: HYDROcodone-ACET 10/325MG TAB PO PRN (01:06)
[2025-06-06 05:31] LABS: Hematocrit 38.3 % (41.0-53.0); Hemoglobin 12.7 g/dL (13.5-17.5); Mean Corpuscular Hemoglobin 28.9 pg (28.0-32.0); Mean Corpuscular Volume 87.3 fL (80.0-100.0); Nucleated Red Blood Cells % 0.0 %
[2025-06-06 05:46] LABS: Alanine Aminotransferase 19 U/L (7-40); Albumin 3.8 g/dL (3.2-4.8); Anion Gap 11 (5-15); BUN/Creatinine Ratio 17.5 (10.0-20.0); Blood Urea Nitrogen 14 mg/dL (9-23); Calcium 8.9 mg/dL (8.7-10.4); Carbon Dioxide 27 mmol/L (20-31); Chloride 100 mmol/L (98-107); Magnesium 1.7 mg/dL (1.6-2.6); Potassium 5.0 mmol/L (3.5-5.1); Sodium 138 mmol/L (136-145); Total Protein 6.3 g/dL (5.7-8.2)
[2025-06-06 05:47] LABS: Bilirubin, Total 0.4 mg/dL (0.2-1.0)
[2025-06-06 05:51] LABS: Alkaline Phosphatase 119 U/L (46-116); Glucose 171 mg/dL (74-106)
[2025-06-06] MEDS: MAGNESIUM OXIDE 400 MG TAB PO ONE (06:15)
[2025-06-06 10:05] LABS: Urine Protein, UAD Negative (Negative)
--- NOTE | 2025-06-06 11:23 | DVHPN2 ---
Progress Note - Surgical Date Seen: Jun 06, 2025 Post op day Post op day: 1 Subjective Patient reports: No new complaints, Feels better Review of Systems: NEURO:Abnormal (Patient having difficulty ambulating, excruciating low back pain he also has experiencing severe muscular weakness cervical radiculopathies and inability to completely close and make fists bilateral) Objective Vital signs Vital Sign Date Time Temp Pulse Resp B/P (MAP) Pulse Ox O2 Delivery O2 Flow Rate FiO2 06/06/25 09:55 129/65 06/06/25 09:55 80 06/06/25 08:00 98.0 16 96 98.0 06/05/25 20:00 Nasal Cannula* 2 28 Total Intake and Output 06/05/25 06/05/25 06/06/25 15:00 23:00 07:00 Intake Total 125 ml 550 ml 940 ml Output Total 175 ml Balance 125 ml 550 ml 765 ml Medications Current Medications Medications Dose Ordered Sig/Galina Route Start Time Stop Time Status Last Admin Dose Admin Allopurinol 100 mg BID PO 06/04/25 22:00 06/06/25 09:55 100 MG Metoprolol Tartrate 50 mg BID PO 06/04/25 22:00 06/06/25 09:55 50 MG Zolpidem Tartrate 5 mg HS PO 06/04/25 22:00 06/04/25 21:41 5 MG Atorvastatin Calcium 20 mg HS PO 06/04/25 22:00 06/05/25 22:26 20 MG Patient Own Medication 1 tab DAILY OR 06/05/25 10:00 UNV Valsartan 320 mg DAILY PO 06/05/25 10:00 06/06/25 09:55 320 MG Hydrochlorothiazide 25 mg DAILY PO 06/05/25 10:00 06/06/25 09:54 25 MG Dextrose/Sodium Chloride 1,000 ml @ 100 mls/hr Q10H IV 06/05/25 17:00 06/06/25 10:23 100 MLS/HR Ondansetron HCl 4 mg Q4HP PRN IV 06/05/25 17:00 Acetaminophen 650 mg Q6HP PRN PO 06/05/25 17:00 Acetaminophen/ Hydrocodone Bitart 1 tab Q6HP PRN PO 06/05/25 17:00 06/06/25 01:06 1 TAB Cyclobenzaprine HCl 10 mg TID PO 12/9/25 22:00 06/06/25 05:15 10 MG Docusate Sodium 100 mg BID PO 06/05/25 22:00 06/06/25 09:55 100 MG Cefazolin Sodium 50 ml @ 100 mls/hr Q8HR IV 06/05/25 22:00 06/07/25 14:29 06/06/25 05:13 100 MLS/HR Nitroglycerin 0.4 mg Q5MINP PRN SL 06/05/25 17:00 Morphine Sulfate 2 mg Q30M PRN IV 06/05/25 17:00 Morphine Sulfate 2 mg Q4HP PRN IV 06/06/25 06:15 Laboratory Laboratory Tests 06/06/25 05:09 Test 06/06/25 05:09 Range/Units Serum Glucose 171 H 74-106 mg/dL Examination: GENERAL:Normal, HEENT:Normal (Patient is experiencing expected postoperative pain to the left surgical site of the anterior neck), NECK:Normal (Patient able to move his head slowly through all ranges of motion), LUNGS:Normal (No difficulty reported overnight), CVS:Normal (No difficulties reported overnight), ABDOMEN:Normal (Patient has not had a bowel movement yet), MSK:Normal (Patient got up with physical therapy and ambulated 60 ft), SKIN:Normal (Left anterior surgical site is well approximated with diony), NEURO:Normal (greatly improved solution consultant strength, some headaches still reported. overall greatly improved), :Normal (Patient is having difficulty with urinary retention, only able to void about 100 mL at a time, admitting team is aware) Problem List/Assessment/Plan Problems: (1) Acute post-operative pain (2) Muscle spasms of neck Assessment and Plan Events of today c/o sore throat Patient has been able to get up and ambulate approximately 60 ft with PT Patient has not had a bowel movement yet- has passed gas Patient is experiencing some urinary retention, , we encouraged more ambulation Patient is cleared downgrade out of the DELORES to tele Drain discontinued today, new dressing applied. Staff is able to change dressing as needed. Drain site we will continue to drain over the next 2-3 days, this is expected and normal the drain site will heal from the inside out Patient is cleared to discharge from a spine surgery perspective with follow up with Dr. Adair on his postoperative visit that needs to be scheduled. Disposition: -Pending admitting team's discretion -Discharge RX: Spine recommendation of muscle relaxers to be maintained and prescribed with patient upon discharge, as well as oral pain medication -Follow up appointment: with Dr Mendoza call to make an appointment for postoperative visit close to two weeks time, call the below number to make appointment [phone] [facility] [address] Ledbetter [address] [place] [id number] -Pain: - IV pain meds post op day 1, with PO supplementation, goal is to progress weaning off IV medications and control pain with PO only. IV pain medication for severe pain (PAIN 7-10) - P.O. analgesics:Tylenol 650MG (PAIN 1-3) oral pain medications for moderate pain (PAIN 4-6) - Muscle relaxers scheduled administration. This is a beneficial medications for the incisional pain as it is mostly related to muscle spasms. Please administer muscle relaxers as scheduled every 8 hours - Cepacol throat lozenges as needed for sore throat -Antibiotics Operative recommendations: -Postoperative dose:-Post operative antibiotics cefazolin 1 g IV piggyback every 8 hours x 48 hours total of 6 doses -DVT PPX: -Hold all chemical DVT/ blood thinners for 14 days postoperatively -use mechanical DVT PPX such as SCD's, ambulation -Activity: -PT evaluation and patients progression -Sit at side of bed for meals -Goal: Ambulate independently and safely (may use assistive devices if needed) -Medical Therapy goals: -Afebrile- Patient may develop a expected post operative fever by day 2-3, this may not be accompanied with a elevation in WBC. if fever develops: Acetaminophen for fever. Albuterol nebulizer Tx every 12 hours for 24 hours to facilitate adequate lung expansion and prevent development of atelectasis. -Euglycemic: bloods sugars under 130mmol/L for optimal healing -Normotensive: Avoid events of hypertension. This helps to keep post operative healing intact and avoids destabilization of beneficial hemostatic coagulation. -Dressings -Anterior cervical patients: If there is excessive bleeding, leaking, drainage notify provider dressing may be changed PRn -Bowel management: -Colace 100mg bid -Diet: - tolerating within dietary limitations ( example: diabetic, Cardiac) -Incentive Spirometer: -10 x hour while awake, RN please educate and observe repeat demonstration, have IS at bedside POD #1 -X-rays: - none indicated at this time -Consults: -Physical Therapy evaluation, treatment recommendations, and discharge recommendations Call with questions Bernardo Merrill ACNP- Orthopaedic Spine Surgery nurse practitioner For Dr Dione Mendoza Patient was examined, chart reviewed, labs evaluated, and diagnostic studies and findings analyzed. Case was discussed with Dr. Brett Mendoza who formulated the plan of care. This medical document was created using an electronic medical record system with [employer] dictation system. Although this document has been carefully reviewed, there might still be some phonetic and typographical errors. These areas are purely typographical due to imperfections of the software programs, and do not reflect any compromise in the patient's medical care. Plan discussed with Plan discussed with: Patient, Other Visit Coding Surgery Date of Service if different f: Jun 06, 2025 Billing Provider: NENA MERRILL NP Surgery Visit Codes: NOT BILLABLE NENA MERRILL NP Jun 06, 2025 11:23
--- NOTE | 2025-06-06 14:08 | DVHPNRES ---
Progress Note Date Seen: Jun 06, 2025 Resident Creating Document: NATALI KHAN RESIDENT Medical Necessity Reason Pt with a Central, PICC or Fol: No Subjective Review of Systems Lalit Trevino is a 74 year-old male patient who presents to ED for elective spinal surgery due to severe cervical spinal stenosis symptomatic by upper and lower extremity weakness which started two months before his admission, admitted one day prior to surgery to obtain cardiac clearance. 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 There is mass effect on the cervical spinal cord at every disc level C3-T1, most severe at the C3-C4 and C4-C5 levels.Significant neural foraminal stenosis bilaterally at every disc level C3-C7. Denies any other associated symptoms including fecal or urinary incontinence, other neurological deficits, dyspnea and chest pain. 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 Completed in 2022 Colonoscopy and endoscopy which were within normal limits. Family history: Noncontributory (father and mother had hypertension Social history: Lives in [facility] with family (next of kin is ). Ex tobacco abuse (approximately 20 pack-year history of smoking) quit in the 1970s. Ex ethanol abuse, quit approximately 10 years ago. Denies any current tobacco, alcohol and other drug abuse Allergy: Denies Home medication: nifedipine, allopurinol, metoprolol, valsartan hydrochlorothiazide, atorvastatin Patient seen and examined at bedside. Currently in D OU status to monitor postop, no events recorded overnight. Surgical wound and anterior left cervical area with no erythema nor signs of infection, JOEY drainage with scares serous- hematic fluid. Planning on downgraded to telemetry. Objective vital signs Vital Sign Date Time Temp Pulse Resp B/P (MAP) Pulse Ox O2 Delivery O2 Flow Rate FiO2 06/06/25 12:00 97.8 73 11 127/63 (84) 93 97.8 06/06/25 08:00 Nasal Cannula* 2 28 Total Intake and Output 1206/05/25 06/06/25 15:00 23:00 07:00 Intake Total 125 ml 550 ml 1040 ml Output Total 175 ml Balance 125 ml 550 ml 865 ml medications Current Medications Medications Dose Ordered Sig/Galina Route Start Time Stop Time Status Last Admin Dose Admin Allopurinol 100 mg BID PO 06/04/25 22:00 06/06/25 09:55 100 MG Metoprolol Tartrate 50 mg BID PO 06/04/25 22:00 06/06/25 09:55 50 MG Zolpidem Tartrate 5 mg HS PO 06/04/25 22:00 06/04/25 21:41 5 MG Atorvastatin Calcium 20 mg HS PO 06/04/25 22:00 06/05/25 22:26 20 MG Patient Own Medication 1 tab DAILY OR 06/05/25 10:00 UNV Valsartan 320 mg DAILY PO 06/05/25 10:00 06/06/25 09:55 320 MG Hydrochlorothiazide 25 mg DAILY PO 06/05/25 10:00 06/06/25 09:54 25 MG Dextrose/Sodium Chloride 1,000 ml @ 100 mls/hr Q10H IV 06/05/25 17:00 06/06/25 10:23 100 MLS/HR Ondansetron HCl 4 mg Q4HP PRN IV 06/05/25 17:00 Acetaminophen 650 mg Q6HP PRN PO 06/05/25 17:00 Docusate Sodium 100 mg BID PO 06/05/25 22:00 06/06/25 09:55 100 MG Cefazolin Sodium 50 ml @ 100 mls/hr Q8HR IV 06/05/25 22:00 06/07/25 14:29 06/06/25 05:13 100 MLS/HR Nitroglycerin 0.4 mg Q5MINP PRN SL 06/05/25 17:00 Morphine Sulfate 2 mg Q30M PRN IV 06/05/25 17:00 Morphine Sulfate 2 mg Q4HP PRN IV 06/06/25 06:15 Acetaminophen/ Hydrocodone Bitart 1 tab Q4HR PRN PO 06/06/25 12:00 Carisoprodol 350 mg TID PO 06/06/25 14:00 laboratory and microbiology Laboratory Tests 06/06/25 05:09 Test 06/06/25 05:09 Range/Units Serum Glucose 171 H 74-106 mg/dL Problem List/Assessment/Plan Problem List/Assessment/Plan # Severe congenital cervical spinal stenosis-status post foraminotomy and facetectomy # Neuroforaminal stenosis with neuropathy/radiculopathy 05/29/2025 Completed MRI of cervical spine: severe spinal canal stenosis at C3- C4 and C4-C5; moderate to severe spinal canal stenosis C5-C6; moderate spinal canal stenosis C6-C7. Mass effect on the cervical spinal cord at every disc level C3-T1, most severe at the C3-C4 and C4-C5 levels. Significant neural foraminal stenosis bilaterally at every disc level C3-C7. him specialists on board ( Dr Mendoza): Ordered cardiac clearance (completed). Completed on 06/04/2025 foraminotomy and facetectomy, cervical disectomy at multiple levels with allograft prosthetic device placement, procedure well tolerated. Indicated physical therapy sessions. # Hypertension # Gout # dyslipidemia Resumed home medication (atorvastatin, metoprolol, valsartan, hydrochlorothiazide, nifedipine). Evaluate requirement of aspirin as outpatient. High purine containing diet # Diverticulosis Recommend high-fiber diet, avoid constipation/diarrhea. # Nonsignificant coronary artery disease Follow up with PCP Echocardiogram completed on 01/2025: Aortic root enlargement with dilation of sinuses of Valsalva, mild left atrial enlargement, concentric LVH, LVEF 60%, trace aortic insufficiency, # Right thyroid nodule Follow up outpatient with the endocrinology/PCP Goals of care discussed with patient for over 18 minutes: Full code status Discussed plan with Dr. Kim, patient and nurses: Downgraded the patient to telemetry. Status post-op foraminotomy and facetectomy, procedure well tolerated, indicating physical therapy. Plan discussed with: Patient, Other (Nurses) My Orders My Orders Orders - NATALI KHAN RESIDENT Procedure Category Date Status Time Transfer Orders XFER 06/06/25 Transmitted 13:12 Visit Coding STANDARD RES Billing Provider: CAROLINA KIM MD Date of Service if different f: Jun 06, 2025 Common Visit Codes: [id number] INP/OBS CARE(HIGH) NATALI KHAN RESIDENT Jun 06, 2025 14:08
[2025-06-06] MEDS: CARISOPRODOL 350 MG TAB PO SCH (14:15)
--- NOTE | 2025-06-06 15:36 | PRN ---
Misceleneous Note Note Note Keep your follow up appointment scheduled with Dr. Adair Call for a appointment, or to change or confirm your appoinment [id number] [facility], [address], [place] [phone] You may shower and let the water run over your neck wound however you must pat it dry with sterile 4x4s gauze. Please do not use regular household towels. Keep your incision covered when you are out of your house or when you are wearing clothing that rub on your incision. He will also do not want to have a seatbelt rubbing on your incision. If you are at home and you have clothing that does not contact your incision you may leave it open to air. You may have some residual drainage from the drain site for the next 2-3 days which is normal it should be a very light pink or zee color fluid. If it юлия nges or becomes bright red please call 911. NENA MERRILL NP Jun 06, 2025 15:36
[2025-06-06] MEDS: MORPHINE SULFATE INJ 2 MG/ml SYRG IV PRN (21:18)
[2025-06-07] VITALS (22 sets, daily range): BP systolic 122–170; BP diastolic 54–85; PULSE 52–147; RESP 10–17; TEMP 97.9–98.9; O2SAT 92–100
--- NOTE | 2025-06-07 00:01 | DVHPN2 ---
Progress Note - Dictate Date Seen: Jun 06, 2025 Medical Necessity Reason Pt with a Central, PICC or Fol: No Subjective Patient was seen and evaluated in follow up in the [facility]. The patient is on 2 LPM NC. Patient underwent cervical anterior cervical discectomy with cervical foraminotomies and facetectomies to decompression the spinal canal and cervical 4 nerve roots 3-4, 4-5 and 5-6 with cervical fusion and allograft prosthetic device. WBC increased to 13.5. vital signs Vital Sign Date Time Temp Pulse Resp B/P (MAP) Pulse Ox O2 Delivery O2 Flow Rate FiO2 06/06/25 19:01 65 11 130/67 (88) 95 06/06/25 16:00 98.0 98.0 06/06/25 08:00 Nasal Cannula* 2 28 Total Intake and Output 06/05/25 06/05/25 06/06/25 15:00 23:00 07:00 Intake Total 125 ml 550 ml 1040 ml Output Total 175 ml Balance 125 ml 550 ml 865 ml medications Current Medications Medications Dose Ordered Sig/Galina Route Start Time Stop Time Status Last Admin Dose Admin Allopurinol 100 mg BID PO 06/04/25 22:00 06/06/25 09:55 100 MG Metoprolol Tartrate 50 mg BID PO 06/04/25 22:00 06/06/25 09:55 50 MG Zolpidem Tartrate 5 mg HS PO 06/04/25 22:00 06/04/25 21:41 5 MG Atorvastatin Calcium 20 mg HS PO 06/04/25 22:00 06/05/25 22:26 20 MG Patient Own Medication 1 tab DAILY OR 06/05/25 10:00 UNV Valsartan 320 mg DAILY PO 06/05/25 10:00 06/06/25 09:55 320 MG Hydrochlorothiazide 25 mg DAILY PO 06/05/25 10:00 06/06/25 09:54 25 MG Dextrose/Sodium Chloride 1,000 ml @ 100 mls/hr Q10H IV 06/05/25 17:00 06/06/25 10:23 100 MLS/HR Ondansetron HCl 4 mg Q4HP PRN IV 06/05/25 17:00 Acetaminophen 650 mg Q6HP PRN PO 06/05/25 17:00 Docusate Sodium 100 mg BID PO 06/05/25 22:00 06/06/25 09:55 100 MG Cefazolin Sodium 50 ml @ 100 mls/hr Q8HR IV 06/05/25 22:00 06/07/25 14:29 06/06/25 15:23 100 MLS/HR Nitroglycerin 0.4 mg Q5MINP PRN SL 06/05/25 17:00 Morphine Sulfate 2 mg Q30M PRN IV 06/05/25 17:00 Morphine Sulfate 2 mg Q4HP PRN IV 06/06/25 06:15 Acetaminophen/ Hydrocodone Bitart 1 tab Q4HR PRN PO 06/06/25 12:00 Carisoprodol 350 mg TID PO 06/06/25 14:00 06/06/25 14:15 350 MG objective GENERAL: Alert and oriented x 3. No acute distress. Obese. EYES: PERRL, EOMI. Anicteric. HENT: Moist mucous membranes. LUNGS: Clear to auscultation bilaterally. CARDIOVASCULAR: Regular rate and rhythm. ABDOMEN: Soft, nontender and nondistended. EXTREMITIES: No edema. NEUROLOGIC: No focal neurological deficits. SKIN: Warm, dry. laboratory and microbiology Laboratory Tests 06/06/25 05:09 Test 06/06/25 05:09 Range/Units Serum Glucose 171 H 74-106 mg/dL Problem List Preprocedural cardiovascular examination. Severe cervical cannula stenosis. Hypertension. Dyslipidemia. Obesity. Assessment/Plan Continued all current supportive medical care. Morphine and [place] for pain management. Lipitor, Metoprolol. IV antibiotics as ordered. DVT prophylactics. Nitro SL. Additional plan as per the hospital course. Critical care time of 45 minutes provided to include time spent evaluation of patient at bedside, when appropriate patient/family education for diagnosis, treatment plan, review of pertinent medical information and discussion of care with specialty providers and PCP. Plan discussed with: Patient DENIZ EAGLE MD Jun 06, 2025 19:13
[2025-06-07] MEDS: HYDROcodone-ACET 10/325MG TAB PO PRN (03:01)
[2025-06-07 05:18] LABS: Hematocrit 36.3 % (41.0-53.0); Hemoglobin 12.1 g/dL (13.5-17.5); Mean Corpuscular Hemoglobin 29.1 pg (28.0-32.0); Mean Corpuscular Volume 87.2 fL (80.0-100.0); Nucleated Red Blood Cells % 0.0 %
[2025-06-07 05:30] LABS: Chloride 101 mmol/L (98-107); Potassium 3.7 mmol/L (3.5-5.1); Sodium 141 mmol/L (136-145)
[2025-06-07 05:31] LABS: Anion Gap 9 (5-15)
[2025-06-07 05:32] LABS: Calcium 9.0 mg/dL (8.7-10.4); Carbon Dioxide 31 mmol/L (20-31)
[2025-06-07 05:36] LABS: BUN/Creatinine Ratio 17.4 (10.0-20.0); Blood Urea Nitrogen 12 mg/dL (9-23)
[2025-06-07 05:40] LABS: Glucose 115 mg/dL (74-106)
--- NOTE | 2025-06-07 08:34 | DVHDSRES ---
Discharge Summary Date of Admission Resident Creating Document: NATALI KHAN RESIDENT Jun 04, 2025 at 18:13 Date of Discharge: Jun 07, 2025 Labs/Diagnostic Data: Laboratory Results Test 06/07/25 04:50 06/06/25 08:37 06/06/25 05:09 06/05/25 08:28 White Blood Count 12.3 10^3/uL (4.4-10.8) Red Blood Count 4.16 10^6/uL (4.5-5.90) Hemoglobin 12.1 g/dL (13.5-17.5) Hematocrit 36.3 % (41.0-53.0) Mean Corpuscular Volume 87.2 fL (80.0-100.0) Mean Corpuscular Hemoglobin 29.1 pg (28.0-32.0) Mean Corpuscular Hemoglobin Concent 33.4 g/dL (32.0-36.0) Red Cell Distribution Width 16.1 % (11.8-14.3) Platelet Count 240 10^3/uL (140-450) Mean Platelet Volume 8.5 fL (6.9-10.8) Neutrophils (%) (Auto) 72.1 % (37.0-80.0) Lymphocytes (%) (Auto) 12.6 % (10.0-50.0) Monocytes (%) (Auto) 14.1 % (0.0-12.0) Eosinophils (%) (Auto) 0.9 % (0.0-7.0) Basophils (%) (Auto) 0.3 % (0.0-2.0) Neutrophils # (Auto) 8.8 10 ^3/uL (1.6-8.6) Lymphocytes # (Auto) 1.5 10 ^3/uL (0.4-5.4) Monocytes # (Auto) 1.7 10 ^3/uL (0-1.3) Eosinophils # (Auto) 0.1 10 ^3/uL (0-0.8) Basophils # (Auto) 0 10 ^3/uL (0-0.2) Nucleated Red Blood Cells 0.0 % Sodium Level 141 mmol/L (136-145) Potassium Level 3.7 mmol/L (3.5-5.1) Chloride Level 101 mmol/L (98-107) Carbon Dioxide Level 31 mmol/L (20-31) Anion Gap 9 (5-15) Blood Urea Nitrogen 12 mg/dL (9-23) Creatinine 0.69 mg/dL (0.700-1.30) Glomerular Filtration Rate Calc 97 mL/min (>90) BUN/Creatinine Ratio 17.4 (10.0-20.0) Serum Glucose 115 mg/dL (74-106) Calcium Level 9.0 mg/dL (8.7-10.4) Urine Color Light-yellow (Yellow) Urine Clarity Clear (Clear) Urine pH 6.0 (5.0-9.0) Urine Specific [place] 1.018 (1.001-1.035) Urine Protein Negative (Negative) Urine Ketones Negative (Negative) Urine Blood Negative /uL (Negative) Urine Nitrite Negative (Negative) Urine Bilirubin Negative (Negative) Urine Urobilinogen Normal mg/dL (Negative) Urine Leukocyte Esterase Negative /uL (Negative) Urine RBC 12 /hpf (0 - 3) Urine Microscopic WBC 2 /HPF (0-3) Urine Squamous Epithelial Cells Few /hpf (<5) Urine Bacteria None seen /hpf (None Seen) Urine Glucose Normal mg/dL (Normal) Magnesium Level 1.7 mg/dL (1.6-2.6) Total Bilirubin 0.4 mg/dL (0.2-1.0) Aspartate Amino Transferase (AST) 25 U/L (13-40) Alanine Aminotransferase (ALT) 19 U/L (7-40) Alkaline Phosphatase 119 U/L (46-116) Total Protein 6.3 g/dL (5.7-8.2) Albumin 3.8 g/dL (3.2-4.8) Prothrombin Time 11.7 sec (9.3-11.8) Prothrombin Time INR 1.12 (0.9-1.15) Activated Partial Thromboplast Time 27.9 SEC (24.5-34.5) Test 06/04/25 19:21 Hemoglobin A1c 6.0 % A1C (<5.7) Thyroid Stimulating Hormone (TSH) 2.01 uIU/mL (0.55-4.78) Other Laboratory Tests 06/07/25 04:50 Brief Hx & Hospital Course: Lalit Trevino is a 74 year-old male patient who presents to ED for elective spinal surgery due to severe cervical spinal stenosis symptomatic by upper and lower extremity weakness which started two months before his admission, admitted one day prior to surgery to obtain cardiac clearance. 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 There is mass effect on the cervical spinal cord at every disc level C3-T1, most severe at the C3-C4 and C4-C5 levels.Significant neural foraminal stenosis bilaterally at every disc level C3-C7. Denies any other associated symptoms including fecal or urinary incontinence, other neurological deficits, dyspnea and chest pain. 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 Completed in 2022 Colonoscopy and endoscopy which were within normal limits. Family history: Noncontributory (father and mother had hypertension Social history: Lives in [facility] with family (next of kin is ). Ex tobacco abuse (approximately 20 pack-year history of smoking) quit in the 1970s. Ex ethanol abuse, quit approximately 10 years ago. 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 Patient completed physical therapy evaluation suggesting discharge with home health with PT sessions. Patient did present hesitance for urination, nocturia, bladder scan which showed increased post-miction volumes, indicated tamsulosin responding partially. Recommend evaluation by urologist as outpatient. Patient hemodynamically stable, asymptomatic, in condition to be discharged home with home health services for physical therapy sessions. Was granted under optimal medical therapy (continue home meds and added tamsulosin), gave advice on healthy lifestyle habits, and outpatient follow up with PCP, content production specialist (Dr Mendoza), urologist and rn psych (right thyroid nodule) DIAGNOSIS # Severe congenital cervical spinal stenosis-status post foraminotomy and facetectomy # Neuroforaminal stenosis with neuropathy/radiculopathy # Hypertension # Gout # Dyslipidemia # Questionable BPH # Diverticulosis # Nonsignificant coronary artery disease # Right thyroid nodule # Newly diagnosed prediabetes Goals of care discussed with patient for over 18 minutes: Full code status Discussed plan with Dr. Kim, patient and nurses. Operations or Procedures Operative Report - 2 Report Details Date: 06/05/25 Preop Diagnosis: Severe C3/4 and C4/5 and C5/6 central canal cervical spinal stenosis with cord compromise and swelling resulting in myelopathy and radiculopathy Postop Diagnosis: same as pre op Surgeon: Brett Mendoza MD General Assistant: Amy Chan NP Anesthesiologist: penny Anesthesia: General Consent: The patient was informed of the risks and benefits of the procedure. These include but are not limited to complications of anesthesia, postoperative infection, incomplete relief of symptoms, recurrence of symptoms, damage to blood vessels, nerves and tendons, deep venous thrombosis, pulmonary embolism and possible need for repeat surgery in the future. Name of Procedure Performed see detailed note Procedure Details Procedure Details: Pre Op Diagnosis: 1. Cervical Degenerative Disk Disease and Severe Spinal Stenosis at C3/4 , C4/5 and C5/6 Causing incapacitating neck pain, radiculopathy and progressive neurologic deficit 2. Severe central canal compromise with cord compression at C3/4 and C4/5 and C5/6 causing edema in the spinal cord resulting in myelopathy and radiculopathy. Post Op Diagnosis: 1. Same as pre op Procedure: Cervical 3 to 4 anterior cervical discectomy with Cervical 3-4 foraminotomies and facetectomies to decompression the spinal canal and Cervical 4 nerve roots Cervical 4 to 5 anterior cervical discectomy with Cervical 4-5 foraminotomies and facetectomies to decompression the spinal canal and Cervical 5 nerve roots Cervical 5 to 6 anterior cervical discectomy with Cervical 5-6 foraminotomies and facetectomies to decompression the spinal canal and Cervical 6 nerve roots Cervical 3-6 anterior cervical Fusion Cervical 3-6 anterior cervical instrumentation with Xtant Irix-C Standalone Interbody Fusion Device Cervical 3-4 placement of allograft prosthetic device Cervical 4-5 placement of allograft prosthetic device Cervical 5-6 placement of allograft prosthetic device Surgeon: Brett Mendoza MD Anesthesia: General Assist: Amy Chan NP Fluids and EBL: see anesthesia note Procedure Note: The patient was seen in the Pre-anesthesia Care Unit and the site of the incision was initialed by me with a felt tipped marker. All questions by the patient were answered to the satisfaction of the patient and the chart was reviewed. The patient was taken to the operating room and placed supine on the [facility] Flat top table. General anesthesia was induced. Neuromonitoring leads were placed. A rolled towel was placed between the shoulder blades to hyperextend out the chest which will allow better exposure of the cervical spine. Halter traction to 10 pounds was placed. The arms were padded and adducted to the patients side making sure all pulses in the hands were present. Tape traction was undertaken on the shoulders to give us better radiographic exposure of the distal cervical spine. A gel-pad was placed under the occiput and 5 degrees of extension was placed on the neck without adverse effects to the patient. The anterior neck was prepped and draped. Pre-operative antibiotics were given 30 minutes prior to the start of the procedure. A c-arm fluoroscope was used to amy out the incision site. A longitudinal incision from the cricoid process cranially to the hyoid bone along the anterior border of the sternocleidomastoid was made. At this time, a time out was taken per usual protocol. Next an incision was made through the skin with a 15 blade scalpel through the subcutaneous tissue down to the platysma. Self-retainers were placed. The platysma was incised along the longitudinal border with a Metzenbaum scissors. Blunt dissection was made through the deep cervical and pre-tracheal fascia taking care to protect the carotid sheath laterally and the trachea and esophagus medially. The dissection was carried down to the pre-vertebral fascia. Any crossing vessels were ligated using a vascular clip or coagulated with a bovie. An esophageal retractor was next used to retract the trachea/esophagus and a bent [address] through the anterior annulus of the cervical disk and a lateral C-arm fluoroscopic image was taken to confirm that we were at the correct level. Next, bovie electrocautery was used to expose the bones of cervical 3,4,5,6 and bipolar electrocautery was used to lift up the Longus colli and capitus muscles. Black-Belt Self Retainers were used to retract the longus colli and capitus muscles bilaterally as well as the trachea/esophagus to the right and the carotid sheath to the left. Self retaining retractors were placed proximally and distally and a needle was placed again in the anterior annulus of the disk and an image taken to confirm the correct level. At this point, the microscope was wheeled in and an 11 blade scalpel incised the anterior annulus of the cervical 3/4 and 4/5 and 5/6 disks. Next, straight and curved curettes removed the remainder of the disks all the way down to the posterior longitudinal ligament. Carefully, a Kerison number one rongeur incised the posterior longitudinal ligament at the lateral end of the above disks and using a micro, blunt tip nerve hook to separate the posterior longitudinal ligament from the dura, alternating 1 mm and 2 mm Kerison rongeurs removed the posterior longitudinal ligament. Next, Kerison 1mm and 2 mm rongeurs were alternated to get under the uncinate processes and undercut them to perform foraminotomies and facetectomies at the cervical 3/4 and 4/5 and 5/6 levels to decompress the central canal and cervical 4,5 and 6 nerve roots. Next the c-arm fluoroscope was wheeled into the field and a lateral image was obtained. Increasing size graft trials were used starting at a 5 mm thick size until the proper tension in the disk space and height moravian obtained. We then placed final free standing cages at C3/4 and 4/5 and 5/6. The size of the implants was: 7mm thick interbody prosthetic devices were placed at each level. Satisfactory placement was confirmed in the AP and lateral views using a C-arm fluoroscope. Copious irrigation of the wound with sterile saline and all bleeding was controlled before closure initiated. At this point, a 10 [place] round Tru[address] Drain was place deep to the Platysma muscle and the Platysma was approximated with one interrupted 0-Vicryl suture. The subcutaneous tissue was closed with interrupted 2-0 vicryl sutures and the skin was closed with diony. Sterile dressings were placed and a cervical collar placed, the patient extubated, transferred to the stretcher and taken to the Recovery Room in unremarkable condition. CHEST RADIOGRAPH INDICATION: PREOPERATIVE CARE TECHNIQUE: Frontal and lateral view of the chest was obtained COMPARISON: XY CHEST TWO VIEWS ROUTINE on DOS: 02/20/25, CHEST TWO VIEWS ROUTINE on DOS: 07/06/22, CHEST PORTABLE on DOS: 03/23/21, CHEST TWO VIEWS ROUTINE on DOS: 11/19/20, XY CHEST TWO VIEWS ROUTINE on DOS: 02/20/25 FINDINGS: Lines and Tubes: None Lungs: No focal consolidation. Pleura: No effusion. No pneumothorax. Cardiomediastinal contours: Cardiomegaly Bones: No acute osseous abnormality. IMPRESSION: Cardiomegaly with CHF ATED BY: CAMRYN ALBERTO MD DICTATED DATE/TIME: 06/05/25 0759 Condition at Discharge: Stable Final Diagnosis/Problems List # Severe congenital cervical spinal stenosis-status post foraminotomy and facetectomy # Neuroforaminal stenosis with neuropathy/radiculopathy # Hypertension # Gout # Dyslipidemia # Questionable BPH # Diverticulosis # Nonsignificant coronary artery disease # Right thyroid nodule # Newly diagnosed prediabetes Discharge Disposition: Home with Health Services Discharge Instruct/Medications Diet: Cardiac 2g Na,low cholest Activity: No Restrictions, As Tolerated Follow Up/Referral: PCP Orthopedics (Dr Mendoza) Medications: Per EMR Scheduled Allopurinol (Allopurinol), 1 TAB PO BID, (Reported) Atorvastatin Calcium (Atorvastatin Calcium), 2 TAB PO QPM, (Reported) Flaxseed (Linseed) (Flaxseed 1000 mg), 1 CAP PO DAILY, (Reported) Metoprolol Tartrate (Metoprolol Tartrate), 50 MG PO BID, (Reported) Tamsulosin Hcl (Flomax), 0.4 MG PO QPM Valsartan-Hydrochlorothiazide (Valsartan/Hydrochlorothia), 1 TAB OR DAILY, (Reported) Zolpidem Tartrate (Ambien), 5 MG PO HS, (Reported) Discharge Statement: "Patient was advised to return to the ER or call 911 if any headaches, dizziness, shortness of breath, chest pain, abdominal pain, bleeding, fevers, or worsening of medical condition. Patient was counseled about treatment plan, medications, possible side effects, patientverbalized understanding. All questions were answered to the best of my ability. This discharge took greater then 30 minutes in planning, reviewing documentation, counseling the patient, and discussing with other team members." ASSESSMENT ASSESSMENT Assessment Spinal Stenosis status post op Visit Coding STANDARD RES Billing Provider: CAROLINA KIM MD Date of Service if different f: Jun 07, 2025 Common Visit Codes: 84832-MEM/OBS DISCH DAY >30min NATALI KHAN RESIDENT Jun 07, 2025 08:34
[2025-06-07] MEDS: TAMSULOSIN HYDROCHLORIDE 0.4 MG CAP PO ONE (10:07)
[2025-06-07] MEDS: ENOXAPARIN SOD 40 MG/0.4 ML SYRINGE SC SCH (10:10)
[2025-06-07] MEDS ORDERED: TAMS-35 PO (12:44)
--- NOTE | 2025-06-07 20:49 | DVHPN2 ---
Progress Note - Dictate Date Seen: Jun 07, 2025 Medical Necessity Reason Pt with a Central, PICC or Fol: No Subjective Patient was seen and evaluated in follow up in the [facility]. No overnight events. Patient's surgical wounds and anterior left cervical area show no erythema nor signs of any infection. JOEY drainage with scares serous-hematic fluid. WBC 12.3. Patient denies any cardiac symptoms. Patient is cardiac stable for discharge. vital signs Vital Sign Date Time Temp Pulse Resp B/P (MAP) Pulse Ox O2 Delivery O2 Flow Rate FiO2 06/07/25 11:17 98.2 53 10 99 06/07/25 11:01 158/85 (109) 06/07/25 08:00 Room Air* 0 21 Total Intake and Output 06/06/25 06/06/25 06/07/25 15:00 23:00 07:00 Intake Total 800 ml 900 ml 1090 ml Output Total 850 ml 900 ml Balance 800 ml 50 ml 190 ml medications Current Medications Medications Dose Ordered Sig/Galina Route Start Time Stop Time Status Last Admin Dose Admin Allopurinol 100 mg BID PO 06/04/25 22:00 06/07/25 10:10 100 MG Metoprolol Tartrate 50 mg BID PO 06/04/25 22:00 06/06/25 22:41 50 MG Zolpidem Tartrate 5 mg HS PO 06/04/25 22:00 06/06/25 22:36 5 MG Atorvastatin Calcium 20 mg HS PO 06/04/25 22:00 06/06/25 22:37 20 MG Patient Own Medication 1 tab DAILY OR 06/05/25 10:00 UNV Valsartan 320 mg DAILY PO 06/05/25 10:00 06/07/25 10:24 320 MG Hydrochlorothiazide 25 mg DAILY PO 06/05/25 10:00 06/07/25 10:09 25 MG Dextrose/Sodium Chloride 1,000 ml @ 100 mls/hr Q10H IV 06/05/25 17:00 06/07/25 10:06 100 MLS/HR Ondansetron HCl 4 mg Q4HP PRN IV 06/05/25 17:00 Acetaminophen 650 mg Q6HP PRN PO 06/05/25 17:00 Docusate Sodium 100 mg BID PO 06/05/25 22:00 06/07/25 10:07 100 MG Cefazolin Sodium 50 ml @ 100 mls/hr Q8HR IV 06/05/25 22:00 06/07/25 14:29 06/07/25 06:38 100 MLS/HR Nitroglycerin 0.4 mg Q5MINP PRN SL 06/05/25 17:00 Morphine Sulfate 2 mg Q30M PRN IV 06/05/25 17:00 Morphine Sulfate 2 mg Q4HP PRN IV 06/06/25 06:15 06/06/25 21:18 2 MG Acetaminophen/ Hydrocodone Bitart 1 tab Q4HR PRN PO 06/06/25 12:00 06/07/25 03:01 1 TAB Carisoprodol 350 mg TID PO 06/06/25 14:00 06/07/25 06:38 350 MG Enoxaparin Sodium 40 mg DAILY SC 06/07/25 10:00 06/07/25 10:10 40 MG Tamsulosin HCl 0.4 mg QPM PO 06/08/25 18:00 objective GENERAL: Alert and oriented x 3. No acute distress. Obese. EYES: PERRL, EOMI. Anicteric. HENT: Moist mucous membranes. LUNGS: Clear to auscultation bilaterally. CARDIOVASCULAR: Regular rate and rhythm. ABDOMEN: Soft, nontender and nondistended. EXTREMITIES: No edema. NEUROLOGIC: No focal neurological deficits. SKIN: Warm, dry. laboratory and microbiology Laboratory Tests 06/07/25 04:50 Test 06/07/25 04:50 Range/Units Serum Glucose 115 H 74-106 mg/dL Problem List Preprocedural cardiovascular examination. Severe cervical cannula stenosis. Hypertension. Dyslipidemia. Obesity. Assessment/Plan Continued all current supportive medical care. Morphine and [place] for pain management. Lipitor, Metoprolol. IV antibiotics as ordered. DVT prophylactics. Nitro SL. Additional plan as per the hospital course. Critical care time of 45 minutes provided to include time spent evaluation of patient at bedside, when appropriate patient/family education for diagnosis, treatment plan, review of pertinent medical information and discussion of care with specialty providers and PCP. Plan discussed with: Patient DENIZ EAGLE MD Jun 07, 2025 11:55
[2025-06-08] MEDS ORDERED: TAMSULOSIN HYDROCHLORIDE 0.4 MG CAP PO SCH (18:00)
== END 2025-06-07 17:28 | disposition home health service (06) | DRG 472 ==
LOC: WEST WING 18:13 → DOU 06-05 18:48
PROVIDERS: ADMIT Internal Medicine Geriatric Medicine; ATTEND Internal Medicine Geriatric Medicine
PROC: 0RB30ZZ Excision of Cervical Vertebral Disc, Open Approach (ICD-10-PCS; 2025-06-05)
PROC: 01N10ZZ Release Cervical Nerve, Open Approach (ICD-10-PCS; 2025-06-05)
PROC: 00NW0ZZ Release Cervical Spinal Cord, Open Approach (ICD-10-PCS; 2025-06-05)
PROC: 4A11X4G Monitoring of Peripheral Nervous Electrical Activity, Intraoperative, External Approach (ICD-10-PCS; 2025-06-05)
PROC: 0RG20A0 Fusion of 2 or more Cervical Vertebral Joints with Interbody Fusion Device, Anterior Approach, Anterior Column, Open Approach (ICD-10-PCS; principal; 2025-06-05 13:45)
DX: M48.02 Spinal stenosis, cervical region (principal); M47.12 Other spondylosis with myelopathy, cervical region; I10 Essential (primary) hypertension; E66.9 Obesity, unspecified; E04.1 Nontoxic single thyroid nodule; M50.021 Cervical disc disorder at C4-C5 level with myelopathy; M50.121 Cervical disc disorder at C4-C5 level with radiculopathy; M47.22 Other spondylosis with radiculopathy, cervical region; M10.9 Gout, unspecified; I25.10 Atherosclerotic heart disease of native coronary artery without angina pectoris; E78.5 Hyperlipidemia, unspecified; R73.03 Prediabetes; K57.30 Diverticulosis of large intestine without perforation or abscess without bleeding; G89.18 Other acute postprocedural pain; M62.838 Other muscle spasm; G62.9 Polyneuropathy, unspecified; N40.0 Benign prostatic hyperplasia without lower urinary tract symptoms; Z87.891 Personal history of nicotine dependence; Z82.3 Family history of stroke; Z80.8 Family history of malignant neoplasm of other organs or systems; Z82.49 Family history of ischemic heart disease and other diseases of the circulatory system; Z68.32 Body mass index [BMI] 32.0-32.9, adult
CPT/HCPCS: 36415; 71045; 72040; 76000; 80048; 80053; 81001; 83036; 83735; 84443; 85014; 85018; 85025; 85610; 85730; 86850; 86900; 86901; 87081; 93005; 97163; G0378; J1100; J1956; J2250

== ENCOUNTER 2025-06-14 14:27 | Emergency (ER) | payer OTHER ==
[~2025-06-14] VITALS: Ht 172.7 cm; Wt 87.2 kg
--- NOTE | 2025-06-14 15:14 | ED.PDOC ---
SOB-HPI HPI Comments 74 y/o M, with PMHx of HTN and HLD presents to the ED for CC of shortness of breath. Patient states, he had a confirmed left DVT in the left-popliteal vein today (06/14/25) by [facility] Patient relays, he was instructed to follow up with the ED d/t reoccurring and worsening shortness of breath, following recent spinal stenosis surgery x1week ago. Patient denies fever, cough, chills, chest pain, or palpitations. No other symptoms or modifying factors are present at this time. Chief Complaint: Shortness of Breath Time Seen by MD: 15:00 Primary Care Provider: JOSE ALFREDO Reviewed notes: Nurses Notes, Medications, Allergies Information Source: Patient Mode of Arrival: Wheelchair Severity: Moderate Timing: Months Duration: Intermittent PE Risk Factors: None History of: None Prehospital treatment: None Modifying Factors: Nothing Past Medical History PAST MEDICAL HISTORY: AFIB, High Lipids, HTN Surgical History: Hernia Repair Family History Family History: Unknown Social History Smoker: Non-Smoker Alcohol: Denies ETOH Use Drugs: Denies Drug Use Lives In: Home Constitutional: denies: chills, diaphoresis, fatigue, fever, malaise, sweats, weakness, others EENTM: denies: blurred vision, double vision, ear bleeding, ear discharge, ear drainage, ear pain, ear ringing, eye pain, eye redness, hearing loss, mouth pain, mouth swelling, nasal discharge, nose bleeding, nose congestion, nose pain, photophobia, tearing, throat pain, throat swelling, voice changes, others Respiratory: reports: shortness of breath; denies: cough, hemoptysis, orthopnea, SOB at rest, SOB with excertion, stridor, wheezing, others Cardiovascular: denies: chest pain, dizzy spells, diaphoresis, Dyspnea on exertion, edema, irregular heart beat, left arm pain, lightheadedness, palpitations, PND, syncope, others Gastrointestinal: denies: abdomen distended, abdominal pain, blood streaked bowels, constipated, diarrhea, dysphagia, difficulty swallowing, hematemesis, melena, nausea, poor appetite, poor fluid intake, rectal bleeding, rectal pain, vomiting, others Genitourinary: denies: burning, dysuria, flank pain, frequency, hematuria, incontinence, penile discharge, penile sore, pain, testicle pain, testicle swelling, urgency, others Neurological: denies: dizziness, fainting, headache, left sided numbness, left sided weakness, numbness, paresthesia, pre-existing deficit, right sided nu mbness, right sided weakness, seizure, speech problems, tingling, tremors, weakness, others Musculoskeletal: denies: back pain, gout, joint pain, joint swelling, muscle pain, muscle stiffness, neck pain, others Integumetry: denies: bruises, change in color, change in hair/nails, dryness, laceration, lesions, lumps, rash, wounds, others Allergic/Immunocompromised: denies: Difficulty Healing, Frequent Infections, Hives, Itching, others Hematologic/Lymphatic: denies: anemia, blood clots, easy bleeding, easy bruising, swollen glands, others Endocrine: denies: excessive hunger, excessive sweating, excessive thirst, excessive urination, flushing, intolerance to cold, intolerance to heat, unexplained weight gain, unexplained weight loss, others Psychiatric: denies: anxiety, bipolar disorder, depression, hopeless, panic disorder, schizophrenia, sleepless, suicidal, others All Other Systems: Reviewed and Negative Physical Exam General Appearance: Moderate Distress HEENT: Normal ENT Inspection, Pharynx Normal, TMs Normal Neck: Full Range of Motion, Non-Tender, Normal, Normal Inspection Respiratory: Chest Non-Tender, Lungs Clear, No Accessory Muscle Use, No Respiratory Distress, Normal Breath Sounds Cardiovascular: No Edema, No JVD, No Murmur, No Gallop, Normal Peripheral Pulses, Regular Rate/Rhythm Breast Exam: Deferred Gastrointestinal: No Organomegaly, Non Tender, No Pulsatile Mass, Normal Bowel Sounds, Soft Genitalia: Deferred Pelvic: Deferred Rectal: Deferred Extremities: No calf tenderness, Normal capillary refill, Normal inspection, Normal range of motion, Non-tender, No pedal edema Musculoskeletal : Apperance: Normal Neurologic: Alert, track manager II-XII nml as Tested, No Motor Deficits, Normal Affect, Normal Mood, No Sensory Deficits Cerebellar Function: Normal Reflexes: Normal Skin: Dry, Normal Color, Warm Lymphatic: No Adenopathy Was a procedure done? Was a procedure done?: No Differential Dx Differential Diagnosis: CHF, COPD, Pneumonia, Pulmonary Embolism X-Ray, Labs, Meds, VS Vital Signs Date Time Temp Pulse Resp B/P (MAP) Pulse Ox O2 Delivery O2 Flow Rate FiO2 06/14/25 14:29 97.6 82 16 118/62 99 97.6 At this time, the patient's CAT scan of the chest shows: IMPRESSION: No evidence for large pulmonary embolism. Extensive bilateral pleural plaque with partial calcification which may represent sequela of asbestos exposure. 5 mm right middle lobe pulmonary soft tissue nodule. Recommend follow-up per Fleischner society criteria. Cholelithiasis. Coronary artery calcification disease. Other findings as described. The patient is discharged and will follow up with the primary care doctor has a prescription of Eliquis at the pharmacy Images Reviewed?: Images reviewed and evaluated by me Time of 1ST Reevaluation: 15:30 Reevaluation 1ST: Unchanged Patient Education/Counseling: Diagnosis, Treatment, Prognosis, Need For Follow Up Family Education/Counseling: No Family Present SEPSIS Sepsis Screen Date sepsis recognized/suspect: Jun 14, 2025 Time Sepsis recognized/suspect: 1437 Recent Procedure: No On Antibiotic Therapy: No Respiratory Rate >20: No Heart Rate >90: No Temp<36 C (96.8 F) or >38.3 C: No SBP <90 or MAP <65 mmHG: No New Acute Mental Status Change: No Is the patient on CPAP, BIPAP,: No Physician Orders Heplock Iv (06/14/25 14:57) Ct Angio Chest Contrast (06/14/25 14:57) Vital Signs Date Time Temp Pulse Resp B/P (MAP) Pulse Ox O2 Delivery O2 Flow Rate FiO2 06/14/25 14:29 97.6 82 16 118/62 99 97.6 Departure 1 Departure Time of Disposition: 17:35 Impression: Primary Impression: Left leg DVT Qualified Codes: I82.402 - Acute embolism and thrombosis of unspecified deep veins of left lower extremity Disposition: 01 HOME / SELF CARE / HOMELESS Condition: Fair Discharged With: Self, Relative Critical Care Note Critical Care Time?: No Stability Stability form required: No Heart Score Heart Score: Heart Score Response (Comments) Value History N/A 0 EKG N/A 0 Age N/A 0 Risk Factors N/A 0 Troponin N/A 0 Total 0 I personally scribed for ANTOINETTE HENDRIX MD ([email or web address]) on 06/14/25 at 15:14. Electronically submitted by Ricarda Roberts ([email or web address]). ANTOINETTE HENDRIX MD Jun 14, 2025 15:14
[2025-06-14] MEDS: IOHEXOL 300 MG/ML 100ML BOTTLE IJ ONE (16:36)
--- NOTE | 2025-06-14 17:18 | DVH ---
INDICATION: sob TECHNIQUE: CT axial images of the chest are obtained with intravenous contrast per CT angiogram protocol. Coronal and sagittal reformats were obtained. Radiation Dose Information: CTDI volume is 15 mGy. Dose-length product is 538 mGy*cm COMPARISON: CT chest report from 10/27/2022, images not available at time of report. FINDINGS: No filling defects in the main left right pulmonary arteries. Segmental and subsegmental pulmonary arteries are suboptimally opacified/characterize. Trachea patent. No pneumothorax. Bilateral atelectasis. No pulmonary airspace consolidation. Numerous bilateral pleural plaques with partial calcification. Right middle lobe soft tissue nodule measuring 5 mm. Heart normal in size. Coronary artery calcification disease. Aortic atherosclerotic disease. No supraclavicular/axillary lymphadenopathy. Cholelithiasis. 9 mm left renal cyst. No aggressive osseous process. IMPRESSION: No evidence for large pulmonary embolism. Extensive bilateral pleural plaque with partial calcification which may represent sequela of asbestos exposure. 5 mm right middle lobe pulmonary soft tissue nodule. Recommend follow-up per Fleischner society criteria. Cholelithiasis. Coronary artery calcification disease. Other findings as described.
[2025-06-14 18:04] VITALS: BP 134/79; PULSE 77; RESP 15; TEMP 98.4; O2SAT 97
== END 2025-06-14 18:07 | disposition home or self-care (01) ==
LOC: ER 14:27
DX: I82.402 Acute embolism and thrombosis of unspecified deep veins of left lower extremity (principal); I10 Essential (primary) hypertension; E78.5 Hyperlipidemia, unspecified; I25.10 Atherosclerotic heart disease of native coronary artery without angina pectoris; Z98.890 Other specified postprocedural states
CPT/HCPCS: 71275; 99285; Q9967

== ENCOUNTER → 2025-06-14 | Outpatient (CLI) | payer OTHER ==
[~2025-06-14] MED LIST changes: +TAMS-35 PO
[2025-06-14 14:36] LABS: Alanine Aminotransferase 20 U/L (7-40); Albumin 3.8 g/dL (3.2-4.8); Anion Gap 9 (5-15); BUN/Creatinine Ratio 18.8 (10.0-20.0); Bilirubin, Total 0.5 mg/dL (0.2-1.0); Blood Urea Nitrogen 13 mg/dL (9-23); Calcium 9.4 mg/dL (8.7-10.4); Carbon Dioxide 31 mmol/L (20-31); Chloride 99 mmol/L (98-107); Glucose 89 mg/dL (74-106); Potassium 3.6 mmol/L (3.5-5.1); Sodium 139 mmol/L (136-145); Total Protein 6.5 g/dL (5.7-8.2)
[2025-06-14 14:40] LABS: Alkaline Phosphatase 132 U/L (46-116)
== END | disposition home or self-care (01) ==
LOC: LAB 13:28
PROVIDERS: ATTEND Internal Medicine
DX: R33.0 Drug induced retention of urine (principal)
CPT/HCPCS: 36415; 80053